=== PATIENT | female | born 1965 | race Caucasian/White ===

== ENCOUNTER 2016-05-31 11:53 | Emergency (ER) | payer MEDICAID ==
[~2016-05-31] VITALS: Ht 157.5 cm; Wt 125.8 kg
[2016-05-31 12:00] VITALS: BP 150/103
== END 2016-05-31 14:18 | disposition home or self-care (01) ==
LOC: ER 12:13
DX: J20.9 Acute bronchitis, unspecified (principal); H66.93 Otitis media, unspecified, bilateral

== ENCOUNTER 2016-06-03 13:54 | Inpatient (IN) | payer MEDICAID ==
[~2016-06-03] VITALS: Ht 157.5 cm; Wt 105.9 kg
[2016-06-03] MEDS ORDERED: ALBUTEROL SULF 2.5 MG/0.5ML(0.5%) NEB SOLN HHN STA (14:06)
[2016-06-03] MEDS ORDERED: SODIUM CHLORIDE 0.9% 1,000 ML IV ONE (14:15)
[2016-06-03] MEDS ORDERED: methylPREDNISolone SOD SUCC 125 MG/2 ML VL IV ONE (14:15)
[2016-06-03] MEDS ORDERED: IPRATROPIUM BROM 0.5 MG/2.5ML INH SOL NEB ONE (14:15)
[2016-06-03 14:55] LABS: Basophils # (auto) 0.1 uL; Basophils % (auto) 0.7 % (0.0-2.0); Eosinophils # (auto) 0 uL; Eosinophils % (auto) 0.1 % (0.0-7.0); Hematocrit 50.6 % (36.0-46.0); Hemoglobin 17.4 g/dL (12.2-16.2); Lymphocytes # (auto) 2.2 uL; Lymphocytes % (auto) 13.6 % (10.0-50.0); Mean Corpuscular Hemoglobin 32.7 pg (28.0-32.0); Mean Corpuscular Hgb Conc. 34.4 g/dL (32.0-36.0); Mean Platelet Volume 8.5 fL (7.4-10.4); Monocytes # (auto) 1.2 uL; Monocytes % (auto) 7.7 % (0.0-12.0); Neutrophils # (auto) 12.4 uL; Neutrophils % (auto) 77.9 % (37.0-80.0); Platelet Count (auto) 297 10^3/uL (140-450); Red Cell Distribution Width 13.5 % (11.6-16.0); White Blood Cell 15.9 10^3/uL (4.4-10.8)
[2016-06-03 15:15] LABS: Albumin 3.2 g/dL (3.4-5.0); Alkaline Phosphatase 104 U/L (45-117); Anion Gap 8 (5-15); Aspartate Aminotransferase 29 U/L (15-37); BUN/Creatinine Ratio 19.8; Bilirubin, Total 0.6 mg/dL (0.2-1.0); Blood Urea Nitrogen 16 mg/dL (7-18); Calcium 8.8 mg/dL (8.5-10.1); Carbon Dioxide 26 mmol/L (21-32); Chloride 106 mmol/L (98-107); GFR African American 96 mL/min; GFR Non-African American 80 mL/min; Glucose 182 mg/dL (74-106); Magnesium 2.2 mg/dL (1.6-2.6); Potassium 4.3 mmol/L (3.5-5.1); Sodium 140 mmol/L (136-145); Total Protein 7.4 g/dL (6.4-8.2)
[2016-06-03] MEDS ORDERED: DEXTROSE (50%) 50ML SYRG IV PRN (15:30)
[2016-06-03] MEDS ORDERED: ONDANSETRON HCL 4 MG/2 ML VIAL IV PRN (15:30)
[2016-06-03] MEDS ORDERED: cefTRIAXone 1GM/50ML D5W 50 ML IV ONE (15:45)
[2016-06-03] MEDS: AZITHROMYCIN 250 MG TAB PO SCH (16:00)
[2016-06-03] MEDS: InsuLIN REG 1unit/0.01ml Soln (100units/ml) SC SCH ×2 (17:00→22:36)
[2016-06-03] MEDS: ACCU-CHEK COMFORT CURVE STRIP VI SCH ×2 (17:00→22:00)
[2016-06-03 17:30] VITALS: BP 138/77
[2016-06-03] MEDS ORDERED: METF-314 PO (18:57)
[2016-06-03] MEDS ORDERED: HYDR-531 PO (18:57)
[2016-06-03] MEDS ORDERED: ALBUAER3 IN (18:57)
[2016-06-03] MEDS ORDERED: PRED1PAK10 PO (18:57)
[2016-06-03] MEDS ORDERED: CEPH750C6 PO (18:57)
[2016-06-03] MEDS ORDERED: AMOX875T3 PO (18:57)
[2016-06-03] MEDS ORDERED: SITA100T7 PO (18:57)
[2016-06-03] MEDS ORDERED: ASPI81TA13 PO (18:57)
[2016-06-03] MEDS: IPRATROPIUM BROM 0.5 MG/2.5ML INH SOL NEB SCH (19:15)
[2016-06-03] MEDS: ALBUTEROL SULF 2.5 MG/0.5ML(0.5%) NEB SOLN NEB SCH (19:15)
[2016-06-03 21:55] LABS: Urine Bilirubin Negative (Negative); Urine Blood Negative /uL (Negative); Urine Color Yellow (Yellow); Urine Glucose 4+ mg/dL (Normal); Urine Ketone Negative (Negative); Urine Nitrite Negative (Negative); Urine RBC 1 /hpf (0 - 4); Urine Squamous Epithelial Cell FEW /hpf (<5); Urine Urobilinogen Normal (Negative); Urine pH 6.5 (5.0-8.0)
[2016-06-03 22:00] VITALS: BP 153/82
[2016-06-03] MEDS: BUDESONIDE (INHALATION) 0.5 MG/2 ML NEB NEB SCH (22:00)
[2016-06-03] MEDS: methylPREDNISolone SOD SUCC 40 MG/ML VL IV SCH (22:26)
[2016-06-03] MEDS: HYDROcodone-ACET 5/325MG TAB PO PRN (22:26)
[2016-06-04 00:09] VITALS: BP 153/82
[2016-06-04 05:51] VITALS: BP 138/82
[2016-06-04] MEDS: IPRATROPIUM BROM 0.5 MG/2.5ML INH SOL NEB SCH ×5 (06:23→22:29)
[2016-06-04] MEDS: ALBUTEROL SULF 2.5 MG/0.5ML(0.5%) NEB SOLN NEB SCH ×5 (06:23→22:29)
[2016-06-04] MEDS: BUDESONIDE (INHALATION) 0.5 MG/2 ML NEB NEB SCH ×2 (06:24→18:09)
[2016-06-04] MEDS: methylPREDNISolone SOD SUCC 40 MG/ML VL IV SCH ×3 (06:33→22:14)
[2016-06-04] MEDS: ACCU-CHEK COMFORT CURVE STRIP VI SCH ×4 (06:33→22:14)
[2016-06-04] MEDS: InsuLIN REG 1unit/0.01ml Soln (100units/ml) SC SCH ×4 (06:39→22:14)
[2016-06-04 07:37] VITALS: BP 123/70
[2016-06-04] MEDS: AZITHROMYCIN 250 MG TAB PO SCH (09:05)
[2016-06-04] MEDS: cefTRIAXone 1GM/50ML D5W 50 ML IV SCH (09:06)
[2016-06-04] MEDS: HYDROcodone-ACET 5/325MG TAB PO PRN ×2 (09:55→22:46)
[2016-06-04 11:30] VITALS: BP 118/68
[2016-06-04] MEDS ORDERED: NICOTINE 21MG/24 HR TOPICAL PATCH TD ONE (14:15)
[2016-06-04 16:00] VITALS: BP 119/62
[2016-06-04] MEDS ORDERED: IPRATROPIUM BROM 0.5 MG/2.5ML INH SOL NEB ONE (16:53)
[2016-06-04 21:30] VITALS: BP 130/64
[2016-06-05 05:00] VITALS: BP 126/65
[2016-06-05] MEDS: methylPREDNISolone SOD SUCC 40 MG/ML VL IV SCH (05:34)
[2016-06-05] MEDS: HYDROcodone-ACET 5/325MG TAB PO PRN ×2 (05:34→14:43)
[2016-06-05] MEDS: BUDESONIDE (INHALATION) 0.5 MG/2 ML NEB NEB SCH (06:00)
[2016-06-05] MEDS: IPRATROPIUM BROM 0.5 MG/2.5ML INH SOL NEB SCH ×3 (06:00→13:07)
[2016-06-05] MEDS: ALBUTEROL SULF 2.5 MG/0.5ML(0.5%) NEB SOLN NEB SCH ×3 (06:00→13:07)
[2016-06-05] MEDS: ACCU-CHEK COMFORT CURVE STRIP VI SCH ×3 (06:29→13:32)
[2016-06-05] MEDS: InsuLIN REG 1unit/0.01ml Soln (100units/ml) SC SCH ×2 (06:29→11:30)
[2016-06-05 08:02] LABS: Basophils # (auto) 0 uL; Basophils % (auto) 0.1 % (0.0-2.0); Eosinophils # (auto) 0 uL; Hematocrit 50.3 % (36.0-46.0); Hemoglobin 16.9 g/dL (12.2-16.2); Lymphocytes # (auto) 1.8 uL; Lymphocytes % (auto) 10.4 % (10.0-50.0); Mean Corpuscular Hgb Conc. 33.5 g/dL (32.0-36.0); Mean Corpuscular Volume 95.3 fL (80.0-100.0); Mean Platelet Volume 9.5 fL (7.4-10.4); Monocytes % (auto) 5.5 % (0.0-12.0); Neutrophils # (auto) 14.6 uL; Platelet Count (auto) 281 10^3/uL (140-450); Red Cell Distribution Width 13.3 % (11.6-16.0); White Blood Cell 17.4 10^3/uL (4.4-10.8)
[2016-06-05] MEDS: AZITHROMYCIN 250 MG TAB PO SCH (08:39)
[2016-06-05] MEDS: cefTRIAXone 1GM/50ML D5W 50 ML IV SCH (08:39)
[2016-06-05 09:00] VITALS: BP 133/83
[2016-06-05] MEDS ORDERED: NICOTINE 21MG/24 HR TOPICAL PATCH TD SCH (10:00)
[2016-06-05] MEDS ORDERED: SODIUM CHLORIDE 0.9% 1,000 ML IV SCH (11:15)
[2016-06-05] MEDS ORDERED: ALBUAER3 IN (12:54)
[2016-06-05] MEDS ORDERED: LEVO500T3 PO (12:54)
[2016-06-05] MEDS ORDERED: NIC21P TD (12:58)
[2016-06-05 13:00] VITALS: BP 148/98
[2016-06-05] MEDS ORDERED: methylPREDNISolone SOD SUCC 40 MG/ML VL IV SCH (22:00)
== END 2016-06-05 14:55 | disposition home or self-care (01) | DRG 140 ==
LOC: EDBD 13:54 → ER 13:54 → OVERFLOW 13:55 → EAST 16:50
PROVIDERS: ADMIT Internal Medicine; ATTEND Internal Medicine
DX: J44.0 Chronic obstructive pulmonary disease with (acute) lower respiratory infection (principal); J96.01 Acute respiratory failure with hypoxia; J44.1 Chronic obstructive pulmonary disease with (acute) exacerbation; Z68.41 Body mass index [BMI] 40.0-44.9, adult; E11.9 Type 2 diabetes mellitus without complications; E66.9 Obesity, unspecified; J20.9 Acute bronchitis, unspecified; F17.210 Nicotine dependence, cigarettes, uncomplicated; G47.33 Obstructive sleep apnea (adult) (pediatric); T38.0X5A Adverse effect of glucocorticoids and synthetic analogues, initial encounter; B19.20 Unspecified viral hepatitis C without hepatic coma; Z90.49 Acquired absence of other specified parts of digestive tract
CPT/HCPCS: 36415; 71010; 80053; 81001; 82962; 83036; 83735; 84484; 85025; 87070; 87205; 93005; 94640; 94761; 96374; J0696; J1815

== ENCOUNTER 2016-08-04 02:38 | Emergency (ER) | payer MEDICAID ==
[~2016-08-04] VITALS: Ht 157.5 cm; Wt 107.0 kg
[~2016-08-04 02:38] MED LIST: ALBUAER3 IN; AMOX875T3 PO; ASPI81TA13 PO; CEPH750C6 PO; HYDR-531 PO; LEVO500T21 PO; METF-371 PO; NIC21P TD; PRED1PAK10 PO; SITA100T7 PO
[2016-08-04 03:31] LABS: Basophils # (auto) 0.1 uL; Basophils % (auto) 0.6 % (0.0-2.0); CONDITION Y; Eosinophils # (auto) 0.2 uL; Eosinophils % (auto) 1.9 % (0.0-7.0); Hemoglobin 16.4 g/dL (12.2-16.2); Lymphocytes # (auto) 3.6 uL; Lymphocytes % (auto) 35.1 % (10.0-50.0); Mean Corpuscular Hemoglobin 33.3 pg (28.0-32.0); Mean Corpuscular Hgb Conc. 34.8 g/dL (32.0-36.0); Mean Corpuscular Volume 95.5 fL (80.0-100.0); Mean Platelet Volume 8.4 fL (7.4-10.4); Monocytes # (auto) 0.9 uL; Monocytes % (auto) 8.3 % (0.0-12.0); Neutrophils # (auto) 5.6 uL; Neutrophils % (auto) 54.1 % (37.0-80.0); Platelet Count (auto) 225 10^3/uL (140-450); Red Cell Distribution Width 12.6 % (11.6-16.0); White Blood Cell 10.3 10^3/uL (4.4-10.8)
[2016-08-04 03:39] LABS: Urine Bilirubin Negative (Negative); Urine Blood Negative /uL (Negative); Urine Color Yellow (Yellow); Urine Glucose Normal (Normal); Urine Ketone Negative (Negative); Urine Mucus FEW (None Seen); Urine Nitrite Negative (Negative); Urine RBC 1 /hpf (0 - 4); Urine Squamous Epithelial Cell FEW /hpf (<5)
[2016-08-04 03:57] LABS: Albumin 3.2 g/dL (3.4-5.0); Alkaline Phosphatase 89 U/L (45-117); Anion Gap 7 (5-15); Aspartate Aminotransferase 35 U/L (15-37); BUN/Creatinine Ratio 16.7; Bilirubin, Total 0.5 mg/dL (0.2-1.0); Blood Urea Nitrogen 11 mg/dL (7-18); Calcium 8.9 mg/dL (8.5-10.1); Carbon Dioxide 27 mmol/L (21-32); Chloride 105 mmol/L (98-107); GFR African American 122 mL/min; GFR Non-African American 101 mL/min; Glucose 145 mg/dL (74-106); Magnesium 1.8 mg/dL (1.6-2.6); Potassium 3.7 mmol/L (3.5-5.1); Sodium 139 mmol/L (136-145); Total Protein 6.8 g/dL (6.4-8.2)
[2016-08-04 07:55] VITALS: BP 130/81
[2016-08-04] MEDS ORDERED: SODIUM CHLORIDE 0.9% 1,000 ML IV ONE (08:12)
[2016-08-04] MEDS ORDERED: ASPirin 81 mg TAB PO ONE (08:15)
== END 2016-08-04 09:53 | disposition home or self-care (01) ==
LOC: ER 02:38
DX: R07.2 Precordial pain (principal); I15.2 Hypertension secondary to endocrine disorders; B18.2 Chronic viral hepatitis C; E11.9 Type 2 diabetes mellitus without complications; F17.210 Nicotine dependence, cigarettes, uncomplicated; J45.909 Unspecified asthma, uncomplicated; Z79.82 Long term (current) use of aspirin; E66.9 Obesity, unspecified; Z68.35 Body mass index [BMI] 35.0-35.9, adult; Z88.8 Allergy status to other drugs, medicaments and biological substances
CPT/HCPCS: 36415; 71020; 80053; 80307; 81001; 83735; 84443; 84484; 85025; 93005; 94761

== ENCOUNTER 2018-03-01 17:30 | Emergency (ER) | payer MEDICAID ==
[~2018-03-01] VITALS: Ht 167.6 cm; Wt 95.3 kg
[~2018-03-01 17:30] MED LIST changes: +ASPI1TAB19 PO; -ASPI81TA13 PO
[2018-03-01 17:36] VITALS: BP 137/86
[2018-03-01] MEDS ORDERED: IBUPROFEN 800 MG TAB PO ONE (21:30)
== END 2018-03-01 20:50 | disposition home or self-care (01) ==
LOC: EDBD 17:30 → ER 17:33
DX: S73.101A Unspecified sprain of right hip, initial encounter (principal); J45.909 Unspecified asthma, uncomplicated; E11.9 Type 2 diabetes mellitus without complications; F17.210 Nicotine dependence, cigarettes, uncomplicated; Z90.49 Acquired absence of other specified parts of digestive tract; Z79.82 Long term (current) use of aspirin; Z79.899 Other long term (current) drug therapy; Z88.8 Allergy status to other drugs, medicaments and biological substances; Z79.84 Long term (current) use of oral hypoglycemic drugs; W01.198A Fall on same level from slipping, tripping and stumbling with subsequent striking against other object, initial encounter; Y93.01 Activity, walking, marching and hiking; Y99.8 Other external cause status; Y92.89 Other specified places as the place of occurrence of the external cause
CPT/HCPCS: 73502; 93005

== ENCOUNTER 2019-08-05 18:21 | Emergency (ER) | payer MEDICAID ==
[~2019-08-05] VITALS: Ht 157.5 cm; Wt 104.8 kg
[2019-08-05 18:52] VITALS: BP 152/73
[2019-08-05] MEDS ORDERED: methylPREDNISolone SOD SUCC 125 MG/2 ML VL IM ONE (19:00)
[2019-08-05] MEDS ORDERED: ALBUTEROL SULF 2.5 MG/0.5ML(0.5%) NEB SOLN NEB ONE (19:00)
[2019-08-05] MEDS ORDERED: IPRATROPIUM BROM 0.5 MG/2.5ML INH SOL NEB ONE (19:00)
== END 2019-08-05 21:25 | disposition home or self-care (01) ==
LOC: ER 18:21
DX: J44.1 Chronic obstructive pulmonary disease with (acute) exacerbation (principal); E11.9 Type 2 diabetes mellitus without complications; F17.210 Nicotine dependence, cigarettes, uncomplicated
CPT/HCPCS: 71046; 82962; 94640; 96372; 99283; J2930; J7644

== ENCOUNTER 2019-08-18 12:47 | Inpatient (IN) | payer MEDICAID ==
[~2019-08-18] VITALS: Ht 157.5 cm; Wt 103.7 kg
[2019-08-18 13:55] LABS: Basophils # (auto) 0.1 10 ^3/uL (0-0.2); Basophils % (auto) 0.8 % (0.0-2.0); Eosinophils # (auto) 0.2 10 ^3/uL (0-0.8); Eosinophils % (auto) 1.6 % (0.0-7.0); Hematocrit 49.9 % (36.0-46.0); Hemoglobin 17.3 g/dL (12.2-16.2); Lymphocytes # (auto) 3.4 10 ^3/uL (0.4-5.4); Lymphocytes % (auto) 29.1 % (10.0-50.0); Mean Corpuscular Hemoglobin 33.1 pg (28.0-32.0); Mean Corpuscular Hgb Conc. 34.6 g/dL (32.0-36.0); Mean Corpuscular Volume 95.6 fL (80.0-100.0); Monocytes % (auto) 8.9 % (0.0-12.0); Neutrophils # (auto) 6.9 10 ^3/uL (1.6-8.6); Neutrophils % (auto) 59.6 % (37.0-80.0); Nucleated Red Blood Cells % 0.1 %; Platelet Count (auto) 220 10^3/uL (140-450); Red Blood Cells 5.22 10^6/uL (4.0-5.20); Red Cell Distribution Width 12.9 % (11.8-14.3); White Blood Cell 11.5 10^3/uL (4.4-10.8)
[2019-08-18 14:16] LABS: Albumin 3.7 g/dL (3.4-5.0); Calcium 9.2 mg/dL (8.5-10.1); Potassium 4.2 mmol/L (3.5-5.1)
[2019-08-18 14:20] LABS: BUN/Creatinine Ratio 15.1; Bilirubin, Total 1.2 mg/dL (0.2-1.0); Total Protein 7.8 g/dL (6.4-8.2)
[2019-08-18] MEDS ORDERED: SODIUM CHLORIDE 0.9% 1,000 ML IV ONE (16:45)
[2019-08-18] MEDS ORDERED: PANTOPRAZOLE 40 MG/10 ML VIAL INJ IV ONE (16:45)
[2019-08-18] MEDS ORDERED: ONDANSETRON HCL 4 MG/2 ML VIAL IV ONE (17:15)
[2019-08-18] MEDS ORDERED: MORPHINE SULF INJ 2 MG/ML SYRINGE 1ML IV ONE (17:15)
[2019-08-18 17:20] LABS: Urine Bacteria NONE SEEN /hpf (None Seen); Urine Blood 2+ /uL (Negative); Urine Mucus FEW (None Seen); Urine Specific Gravity 1.027 (1.001-1.035); Urine WBC 5 /hpf (0 - 5)
[2019-08-18 17:38] LABS: Amphetamine Screen, Urine NEGATIVE (NEGATIVE); Barbiturate Scree,Urine NEGATIVE (NEGATIVE); Benzodiazephine Screen, Urine NEGATIVE (NEGATIVE); Cannabinoid Screen, Urine NEGATIVE (NEGATIVE); Cocaine Screen, Urine NEGATIVE (NEGATIVE); Opiate Scree,Urine NEGATIVE (NEGATIVE); Phencyclidine Screen, Urine NEGATIVE (NEGATIVE)
[2019-08-18] MEDS ORDERED: LACTATED RINGER'S 1,000 ML IV ONE (19:45)
[2019-08-18] MEDS ORDERED: DEXTROSE (50%) 50ML SYRG IV PRN (19:45)
[2019-08-18] MEDS ORDERED: DOCUSATE SOD 100 MG CAP PO PRN (19:45)
[2019-08-18] MEDS ORDERED: NITROGLYCERIN 0.4 MG SL TAB SL PRN (19:45)
[2019-08-18] MEDS ORDERED: MORPHINE SULF INJ 2 MG/ML SYRINGE 1ML IV PRN (19:45)
[2019-08-18] MEDS: PANTOPRAZOLE 40 MG/10 ML VIAL INJ IV SCH (22:00)
[2019-08-19] VITALS (7 sets, daily range): BP systolic 102–138; BP diastolic 66–77
[2019-08-19] MEDS: IPRATROPIUM BROM 0.5 MG/2.5ML INH SOL NEB SCH ×5 (00:43→19:36)
[2019-08-19] MEDS: ALBUTEROL SULF 2.5 MG/0.5ML(0.5%) NEB SOLN NEB SCH ×5 (00:43→19:36)
[2019-08-19] MEDS: MORPHINE SULF INJ 2 MG/ML SYRINGE 1ML IV PRN ×5 (01:12→22:27)
[2019-08-19] MEDS: ONDANSETRON HCL 4 MG/2 ML VIAL IV PRN ×2 (01:29→05:36)
[2019-08-19] MEDS ORDERED: CYCL7.5T15 PO (03:59)
[2019-08-19] MEDS ORDERED: TAM04C PO (03:59)
[2019-08-19] MEDS: ACCU-CHEK COMFORT CURVE STRIP VI SCH ×5 (05:35→23:59)
[2019-08-19] MEDS: InsuLIN REG 1unit/0.01ml Soln (100units/ml) SC SCH ×5 (05:40→23:59)
[2019-08-19 06:31] LABS: Basophils # (auto) 0 10 ^3/uL (0-0.2); Basophils % (auto) 0.3 % (0.0-2.0); Eosinophils # (auto) 0.2 10 ^3/uL (0-0.8); Eosinophils % (auto) 1.4 % (0.0-7.0); Hematocrit 50.5 % (36.0-46.0); Hemoglobin 16.7 g/dL (12.2-16.2); Lymphocytes # (auto) 3.8 10 ^3/uL (0.4-5.4); Lymphocytes % (auto) 29.5 % (10.0-50.0); Mean Corpuscular Hemoglobin 32.5 pg (28.0-32.0); Mean Corpuscular Volume 98.3 fL (80.0-100.0); Monocytes # (auto) 0.9 10 ^3/uL (0-1.3); Neutrophils % (auto) 61.8 % (37.0-80.0); Platelet Count (auto) 209 10^3/uL (140-450); Red Blood Cells 5.14 10^6/uL (4.0-5.20)
[2019-08-19 06:36] LABS: INR 0.99 (0.9-1.15); Partial Thromboplastin Time 25.8 sec (23.64-32.05)
[2019-08-19 06:45] LABS: Potassium 3.7 mmol/L (3.5-5.1)
[2019-08-19 06:51] LABS: Albumin 3.4 g/dL (3.4-5.0); BUN/Creatinine Ratio 15.9; Bilirubin, Total 1.1 mg/dL (0.2-1.0); Calcium 8.5 mg/dL (8.5-10.1); Magnesium 2.5 mg/dL (1.6-2.6); Total Protein 7.3 g/dL (6.4-8.2)
[2019-08-19] MEDS: PANTOPRAZOLE 40 MG/10 ML VIAL INJ IV SCH (10:10)
[2019-08-19] MEDS: SUCRALFATE 1 GM/10 ML ORAL SUSP PO SCH ×3 (12:44→21:49)
[2019-08-19] MEDS: PANTOPRAZOLE 40 MG TAB PO SCH (21:50)
[2019-08-20] MEDS: ALBUTEROL SULF 2.5 MG/0.5ML(0.5%) NEB SOLN NEB SCH ×6 (01:29→18:56)
[2019-08-20] MEDS: IPRATROPIUM BROM 0.5 MG/2.5ML INH SOL NEB SCH ×6 (01:29→18:56)
[2019-08-20] MEDS: HYDROcodone-ACET 5/325MG TAB PO PRN ×3 (04:43→20:30)
[2019-08-20 05:00] VITALS: BP 119/61
[2019-08-20] MEDS: ACCU-CHEK COMFORT CURVE STRIP VI SCH ×4 (06:00→23:59)
[2019-08-20] MEDS: InsuLIN REG 1unit/0.01ml Soln (100units/ml) SC SCH ×4 (06:00→23:59)
[2019-08-20] MEDS: SUCRALFATE 1 GM/10 ML ORAL SUSP PO SCH ×4 (06:55→22:12)
[2019-08-20] MEDS: MORPHINE SULF INJ 2 MG/ML SYRINGE 1ML IV PRN ×2 (07:03→23:59)
[2019-08-20 09:00] VITALS: BP 122/74
[2019-08-20] MEDS ORDERED: ePHEDrine SULFATE 50 MG/ML AMP IV PRN (10:00)
[2019-08-20] MEDS ORDERED: LABETALOL HCL 5 MG/ML 4ML SYRINGE IV PRN (10:00)
[2019-08-20] MEDS ORDERED: MIDAZOLAM HCL 1MG/1ML-2 ML VIAL ONE (10:00)
[2019-08-20] MEDS ORDERED: HYDROmorphone HCL 2 MG/ML VL IV PRN (10:00)
[2019-08-20] MEDS ORDERED: fentaNYL CITRATE 100 MCG/2 ML VL ONE (10:00)
[2019-08-20] MEDS ORDERED: MORPHINE SULFATE 4 MG/ML SYR/VIAL IV PRN (10:00)
[2019-08-20] MEDS ORDERED: ONDANSETRON HCL 4 MG/2 ML VIAL IV PRN (10:00)
[2019-08-20] MEDS ORDERED: PROPOFOL 10 MG/ML 20 ML IV ONE (10:05)
[2019-08-20] MEDS: PANTOPRAZOLE 40 MG TAB PO SCH ×2 (11:10→22:12)
[2019-08-20 13:00] VITALS: BP 112/69
[2019-08-20 17:00] VITALS: BP 102/75
[2019-08-20 22:00] VITALS: BP 142/79
[2019-08-21] MEDS: ALBUTEROL SULF 2.5 MG/0.5ML(0.5%) NEB SOLN NEB SCH ×4 (00:02→12:20)
[2019-08-21] MEDS: IPRATROPIUM BROM 0.5 MG/2.5ML INH SOL NEB SCH ×4 (00:02→12:20)
[2019-08-21 05:00] VITALS: BP 124/69
[2019-08-21] MEDS: InsuLIN REG 1unit/0.01ml Soln (100units/ml) SC SCH ×2 (06:00→12:00)
[2019-08-21] MEDS: ACCU-CHEK COMFORT CURVE STRIP VI SCH ×2 (06:00→12:00)
[2019-08-21] MEDS: MORPHINE SULF INJ 2 MG/ML SYRINGE 1ML IV PRN ×2 (06:39→11:04)
[2019-08-21] MEDS: SUCRALFATE 1 GM/10 ML ORAL SUSP PO SCH ×2 (07:12→11:03)
[2019-08-21 09:20] VITALS: BP 124/68
[2019-08-21] MEDS: PANTOPRAZOLE 40 MG TAB PO SCH (09:21)
[2019-08-21 09:52] VITALS: BP 124/68
== END 2019-08-21 13:00 | disposition home or self-care (01) | DRG 253 ==
LOC: ER 12:47 → OVERFLOW 12:48 → WEST WING 23:55
PROVIDERS: ADMIT Internal Medicine; ATTEND Internal Medicine
PROC: 0DB68ZX Excision of Stomach, Via Natural or Artificial Opening Endoscopic, Diagnostic (ICD-10-PCS; principal; 2019-08-20 09:59)
DX: K62.5 Hemorrhage of anus and rectum (principal); E66.01 Morbid (severe) obesity due to excess calories; K40.90 Unilateral inguinal hernia, without obstruction or gangrene, not specified as recurrent; K57.30 Diverticulosis of large intestine without perforation or abscess without bleeding; K42.9 Umbilical hernia without obstruction or gangrene; D64.9 Anemia, unspecified; J96.10 Chronic respiratory failure, unspecified whether with hypoxia or hypercapnia; M54.9 Dorsalgia, unspecified; G47.30 Sleep apnea, unspecified; E11.9 Type 2 diabetes mellitus without complications; F17.210 Nicotine dependence, cigarettes, uncomplicated; J44.9 Chronic obstructive pulmonary disease, unspecified; G89.4 Chronic pain syndrome; Z71.41 Alcohol abuse counseling and surveillance of alcoholic; Z90.49 Acquired absence of other specified parts of digestive tract; Z71.6 Tobacco abuse counseling; Z99.81 Dependence on supplemental oxygen; Z11.59 Encounter for screening for other viral diseases
CPT/HCPCS: 36415; 71045; 74176; 80053; 80061; 80307; 81001; 82150; 82962; 83036; 83690; 83735; 84484; 85025; 85610; 85730; 93005; 94640; C9113; G0378; J1815; J2250; J2405; J2704

== ENCOUNTER 2019-10-01 08:11 | Emergency (ER) | payer MEDICAID ==
[~2019-10-01] VITALS: Ht 157.5 cm; Wt 100.2 kg
[~2019-10-01 08:11] MED LIST changes: -PRED1PAK10 PO
[2019-10-01] MEDS ORDERED: SODIUM CHLORIDE 0.9% 1,000 ML IV ONE (09:07)
[2019-10-01 09:39] LABS: Basophils # (auto) 0 10 ^3/uL (0-0.2); Basophils % (auto) 0.5 % (0.0-2.0); Eosinophils # (auto) 0.1 10 ^3/uL (0-0.8); Eosinophils % (auto) 1.6 % (0.0-7.0); Hemoglobin 16.5 g/dL (12.2-16.2); Lymphocytes # (auto) 2.7 10 ^3/uL (0.4-5.4); Lymphocytes % (auto) 30.5 % (10.0-50.0); Mean Corpuscular Hemoglobin 32.9 pg (28.0-32.0); Mean Corpuscular Hgb Conc. 34.3 g/dL (32.0-36.0); Mean Corpuscular Volume 95.8 fL (80.0-100.0); Monocytes # (auto) 0.6 10 ^3/uL (0-1.3); Monocytes % (auto) 7.4 % (0.0-12.0); Neutrophils # (auto) 5.2 10 ^3/uL (1.6-8.6); Platelet Count (auto) 221 10^3/uL (140-450); Red Blood Cells 5.01 10^6/uL (4.0-5.20); Red Cell Distribution Width 12.8 % (11.8-14.3); White Blood Cell 8.7 10^3/uL (4.4-10.8)
[2019-10-01 10:06] LABS: Albumin 3.5 g/dL (3.4-5.0); Anion Gap 4 (5-15); Blood Urea Nitrogen 11 mg/dL (7-18); Calcium 8.8 mg/dL (8.5-10.1); Carbon Dioxide 27 mmol/L (21-32); Chloride 107 mmol/L (98-107); Potassium 3.7 mmol/L (3.5-5.1); Sodium 138 mmol/L (136-145)
[2019-10-01 10:12] LABS: Alanine Aminotransferase 27 U/L (13-56); Alkaline Phosphatase 83 U/L (45-117); Aspartate Aminotransferase 13 U/L (15-37); BUN/Creatinine Ratio 14.7; GFR African American 104 mL/min; GFR Non-African American 86 mL/min; Glucose 108 mg/dL (74-106)
[2019-10-01 10:16] VITALS: BP 114/71
[2019-10-01 10:59] LABS: INR 0.98 (0.9-1.15); Partial Thromboplastin Time 27.4 sec (23.0-31.2)
[2019-10-01] MEDS ORDERED: PANTOPRAZOLE 40 MG TAB PO ONE (11:30)
[2019-10-01 11:34] LABS: Urine Bacteria NONE SEEN /hpf (None Seen); Urine Blood 2+ /uL (Negative); Urine Mucus FEW (None Seen); Urine Specific Gravity 1.015 (1.001-1.035); Urine WBC 2 /hpf (0 - 5)
== END 2019-10-01 12:28 | disposition home or self-care (01) ==
LOC: ER 08:11
DX: N20.0 Calculus of kidney (principal); E86.0 Dehydration; K64.9 Unspecified hemorrhoids; J44.9 Chronic obstructive pulmonary disease, unspecified; E11.9 Type 2 diabetes mellitus without complications; F17.210 Nicotine dependence, cigarettes, uncomplicated; Z90.49 Acquired absence of other specified parts of digestive tract
CPT/HCPCS: 36415; 71045; 74176; 80053; 81001; 84484; 85025; 85610; 85730; 96360

== ENCOUNTER 2020-06-03 15:13 | Emergency (ER) | payer MEDICAID ==
[~2020-06-03] VITALS: Ht 157.5 cm; Wt 98.9 kg
[~2020-06-03 15:13] MED LIST changes: -LEVO500T21 PO; +LEVO500T31 PO
[2020-06-03 15:14] VITALS: BP 164/93
[2020-06-03] MEDS ORDERED: ONDANSETRON ODT 4 MG TAB PO ONE (16:45)
[2020-06-03] MEDS ORDERED: KETOROLAC TROMETH 60MG/2ML VIAL IM ONE (16:45)
== END 2020-06-03 17:40 | disposition home or self-care (01) ==
LOC: ER 15:13
DX: G43.909 Migraine, unspecified, not intractable, without status migrainosus (principal); J44.9 Chronic obstructive pulmonary disease, unspecified; E11.9 Type 2 diabetes mellitus without complications; F17.210 Nicotine dependence, cigarettes, uncomplicated; R03.0 Elevated blood-pressure reading, without diagnosis of hypertension; Z90.49 Acquired absence of other specified parts of digestive tract
CPT/HCPCS: 81002; 93005; 96372; 99283; J1885; Q0162

== ENCOUNTER 2020-06-04 22:28 | Emergency (ER) | payer MEDICAID ==
[~2020-06-04] VITALS: Ht 157.5 cm; Wt 99.8 kg
[2020-06-04 23:39] LABS: Basophils # (auto) 0 10 ^3/uL (0-0.2); Basophils % (auto) 0.3 % (0.0-2.0); Eosinophils # (auto) 0.1 10 ^3/uL (0-0.8); Eosinophils % (auto) 0.5 % (0.0-7.0); Hematocrit 50.1 % (36.0-46.0); Hemoglobin 17.6 g/dL (12.2-16.2); Lymphocytes # (auto) 1.9 10 ^3/uL (0.4-5.4); Lymphocytes % (auto) 15.2 % (10.0-50.0); Mean Corpuscular Hemoglobin 33.3 pg (28.0-32.0); Mean Corpuscular Hgb Conc. 35.2 g/dL (32.0-36.0); Mean Corpuscular Volume 94.6 fL (80.0-100.0); Monocytes # (auto) 0.8 10 ^3/uL (0-1.3); Monocytes % (auto) 6.1 % (0.0-12.0); Neutrophils # (auto) 9.7 10 ^3/uL (1.6-8.6); Neutrophils % (auto) 77.9 % (37.0-80.0); Nucleated Red Blood Cells % 0.1 %; Platelet Count (auto) 230 10^3/uL (140-450); Red Cell Distribution Width 12.2 % (11.8-14.3); White Blood Cell 12.4 10^3/uL (4.4-10.8)
[2020-06-04 23:57] LABS: Anion Gap 9 (5-15); Blood Urea Nitrogen 18 mg/dL (7-18); Calcium 9.3 mg/dL (8.5-10.1); Carbon Dioxide 23 mmol/L (21-32); Chloride 105 mmol/L (98-107); Potassium 3.9 mmol/L (3.5-5.1); Sodium 137 mmol/L (136-145)
[2020-06-05] LABS: Albumin 3.6 g/dL (3.4-5.0); BUN/Creatinine Ratio 22.5; GFR African American 96 mL/min; GFR Non-African American 79 mL/min; Glucose 149 mg/dL (74-106)
[2020-06-05 00:05] LABS: Alanine Aminotransferase 21 U/L (13-56); Alkaline Phosphatase 88 U/L (45-117); Aspartate Aminotransferase 15 U/L (15-37); Bilirubin, Total 1.1 mg/dL (0.2-1.0); Total Protein 7.4 g/dL (6.4-8.2)
[2020-06-05 00:30] VITALS: BP 138/90
[2020-06-05 01:16] LABS: Urine Amorphous Crystal FEW /hpf (None Seen); Urine Bacteria FEW /hpf (None Seen); Urine Blood 2+ /uL (Negative); Urine Mucus FEW (None Seen); Urine Specific Gravity 1.019 (1.001-1.035); Urine WBC 5 /hpf (0 - 5)
[2020-06-05] MEDS ORDERED: ALBUTEROL SULF 2.5 MG/0.5ML(0.5%) NEB SOLN NEB ONE (01:45)
[2020-06-05] MEDS ORDERED: IPRATROPIUM BROM 0.5 MG/2.5ML INH SOL NEB ONE (01:45)
[2020-06-05] MEDS ORDERED: ALBUTEROL SULF 2.5 MG/0.5ML(0.5%) NEB SOLN ONE (01:52)
[2020-06-05] MEDS ORDERED: IPRATROPIUM BROM 0.5 MG/2.5ML INH SOL ONE (01:52)
== END 2020-06-05 02:40 | disposition home or self-care (01) ==
LOC: ER 22:29
DX: J44.1 Chronic obstructive pulmonary disease with (acute) exacerbation (principal); R07.9 Chest pain, unspecified; J01.00 Acute maxillary sinusitis, unspecified; J20.9 Acute bronchitis, unspecified; F17.210 Nicotine dependence, cigarettes, uncomplicated; I25.2 Old myocardial infarction; Z90.49 Acquired absence of other specified parts of digestive tract
CPT/HCPCS: 36415; 71045; 80053; 81001; 82962; 83880; 84484; 85025; 93005; 94640; 99285; J7644

== ENCOUNTER 2020-08-16 10:13 | Emergency (ER) | payer MEDICAID ==
[~2020-08-16] VITALS: Ht 162.6 cm; Wt 81.6 kg
[2020-08-16] MEDS ORDERED: ALBUTEROL SULF 2.5 MG/0.5ML(0.5%) NEB SOLN NEB ONE (11:00)
[2020-08-16] MEDS ORDERED: methylPREDNISolone SOD SUCC 125 MG/2 ML VL IV ONE (11:00)
[2020-08-16] MEDS ORDERED: NICOTINE 14 MG/24HR TOPICAL PATCH TD ONE (11:00)
[2020-08-16] MEDS ORDERED: IPRATROPIUM BROM 0.5 MG/2.5ML INH SOL NEB ONE (11:00)
[2020-08-16] MEDS ORDERED: SODIUM CHLORIDE 0.9% 1,000 ML IVB ONE (11:00)
[2020-08-16] MEDS ORDERED: SODIUM CHLORIDE 0.9% 1,000 ML IV ONE (11:00)
[2020-08-16 11:22] LABS: Basophils # (auto) 0.1 10 ^3/uL (0-0.2); Eosinophils # (auto) 0.2 10 ^3/uL (0-0.8); Eosinophils % (auto) 2.2 % (0.0-7.0); Hematocrit 46.6 % (36.0-46.0); Hemoglobin 16.6 g/dL (12.2-16.2); Lymphocytes # (auto) 2.6 10 ^3/uL (0.4-5.4); Lymphocytes % (auto) 33.2 % (10.0-50.0); Mean Corpuscular Hemoglobin 33.6 pg (28.0-32.0); Mean Corpuscular Hgb Conc. 35.6 g/dL (32.0-36.0); Mean Corpuscular Volume 94.3 fL (80.0-100.0); Monocytes # (auto) 0.7 10 ^3/uL (0-1.3); Monocytes % (auto) 8.6 % (0.0-12.0); Neutrophils # (auto) 4.2 10 ^3/uL (1.6-8.6); Nucleated Red Blood Cells % 0.2 %; Platelet Count (auto) 219 10^3/uL (140-450); Red Blood Cells 4.95 10^6/uL (4.0-5.20); Red Cell Distribution Width 12.7 % (11.8-14.3); White Blood Cell 7.7 10^3/uL (4.4-10.8)
[2020-08-16 11:40] LABS: Albumin 3.7 g/dL (3.4-5.0); Anion Gap 6 (5-15); Blood Urea Nitrogen 9 mg/dL (7-18); Calcium 8.5 mg/dL (8.5-10.1); Carbon Dioxide 28 mmol/L (21-32); Chloride 103 mmol/L (98-107); Glucose 129 mg/dL (74-106); Magnesium 2.1 mg/dL (1.6-2.6); Potassium 3.7 mmol/L (3.5-5.1); Sodium 137 mmol/L (136-145)
[2020-08-16 11:46] LABS: Alanine Aminotransferase 25 U/L (13-56); Alkaline Phosphatase 84 U/L (45-117); Aspartate Aminotransferase 13 U/L (15-37); BUN/Creatinine Ratio 12.2; Bilirubin, Total 0.9 mg/dL (0.2-1.0); GFR African American 105 mL/min; GFR Non-African American 87 mL/min; Total Protein 7.4 g/dL (6.4-8.2)
[2020-08-16 12:16] LABS: Urine Bacteria FEW /hpf (None Seen); Urine Blood 3+ /uL (Negative); Urine Mucus FEW (None Seen); Urine Specific Gravity 1.011 (1.001-1.035); Urine WBC 5 /hpf (0 - 5)
[2020-08-16 13:36] VITALS: BP 141/79
== END 2020-08-16 13:38 | disposition home or self-care (01) ==
LOC: ER 10:13 → EDBD 10:13 → ER 13:36
DX: J44.1 Chronic obstructive pulmonary disease with (acute) exacerbation (principal); E11.9 Type 2 diabetes mellitus without complications; F17.210 Nicotine dependence, cigarettes, uncomplicated; Z90.49 Acquired absence of other specified parts of digestive tract
CPT/HCPCS: 36415; 71045; 80053; 81001; 83735; 84443; 84484; 85025; 85049; 93005; 94640; 96361; 96374; 99285; J2930; J7030; J7644

== ENCOUNTER 2020-12-25 16:19 | Emergency (ER) | payer MEDICAID ==
[~2020-12-25] VITALS: Ht 157.5 cm; Wt 95.7 kg
[2020-12-25] MEDS ORDERED: KETOROLAC TROMETH 30 MG/ML 1ML VIAL IV ONE (16:45)
[2020-12-25] MEDS ORDERED: SODIUM CHLORIDE 0.9% 1,000 ML IVB ONE (16:45)
[2020-12-25] MEDS ORDERED: TAMSULOSIN HYDROCHLORIDE 0.4 MG CAP PO ONE (16:45)
[2020-12-25] MEDS ORDERED: SODIUM CHLORIDE 0.9% 1,000 ML IV ONE (16:45)
[2020-12-25] MEDS ORDERED: ONDANSETRON HCL 4 MG/2 ML VIAL IV ONE (16:45)
[2020-12-25 17:12] LABS: Urine Bacteria NONE SEEN /hpf (None Seen); Urine Blood 1+ /uL (Negative); Urine Mucus FEW (None Seen); Urine Specific Gravity 1.028 (1.001-1.035); Urine WBC 2 /hpf (0 - 5)
[2020-12-25 18:21] LABS: Basophils # (auto) 0 10 ^3/uL (0-0.2); Basophils % (auto) 0.4 % (0.0-2.0); Eosinophils # (auto) 0.2 10 ^3/uL (0-0.8); Eosinophils % (auto) 1.9 % (0.0-7.0); Hematocrit 49.3 % (36.0-46.0); Hemoglobin 16.8 g/dL (12.2-16.2); Lymphocytes # (auto) 3.6 10 ^3/uL (0.4-5.4); Lymphocytes % (auto) 30.8 % (10.0-50.0); Mean Corpuscular Hemoglobin 32.8 pg (28.0-32.0); Mean Corpuscular Hgb Conc. 34.1 g/dL (32.0-36.0); Mean Corpuscular Volume 96.1 fL (80.0-100.0); Monocytes # (auto) 1.1 10 ^3/uL (0-1.3); Monocytes % (auto) 9.3 % (0.0-12.0); Neutrophils # (auto) 6.7 10 ^3/uL (1.6-8.6); Neutrophils % (auto) 57.6 % (37.0-80.0); Nucleated Red Blood Cells % 0.1 %; Red Blood Cells 5.13 10^6/uL (4.0-5.20); Red Cell Distribution Width 12.8 % (11.8-14.3); White Blood Cell 11.7 10^3/uL (4.4-10.8)
[2020-12-25 18:49] LABS: Albumin 3.6 g/dL (3.4-5.0); Calcium 9.1 mg/dL (8.5-10.1); Potassium 4.2 mmol/L (3.5-5.1)
[2020-12-25 18:58] LABS: BUN/Creatinine Ratio 17.1; Total Protein 7.5 g/dL (6.4-8.2)
[2020-12-25 19:35] VITALS: BP 132/80
[2020-12-26] MEDS ORDERED: FLUT0.05 NAS (19:11)
[2020-12-26] MEDS ORDERED: LISI20TA28 PO (19:11)
[2020-12-26] MEDS ORDERED: BUDE1AER5 IN (19:11)
[2020-12-26] MEDS ORDERED: BACL10TA PO (19:11)
[2020-12-26] MEDS ORDERED: IBUP600T27 PO (19:11)
[2020-12-26] MEDS ORDERED: MONT-8 PO (19:11)
[2020-12-26] MEDS ORDERED: FAMO20TA10 PO (19:11)
[2020-12-26] MEDS ORDERED: ATOR10TA52 PO (19:11)
[2020-12-26] MEDS ORDERED: LORA-622 PO (19:11)
[2020-12-26] MEDS ORDERED: GABA-339 PO (19:11)
[2020-12-26] MEDS ORDERED: DICL1.3P TOP (19:11)
[2020-12-26] MEDS ORDERED: SEMA4INJ SC (19:13)
== END 2020-12-25 19:46 | disposition home or self-care (01) ==
LOC: ER 16:19
DX: N20.0 Calculus of kidney (principal); J44.9 Chronic obstructive pulmonary disease, unspecified; E11.9 Type 2 diabetes mellitus without complications; F17.210 Nicotine dependence, cigarettes, uncomplicated; Z90.49 Acquired absence of other specified parts of digestive tract; Z79.82 Long term (current) use of aspirin; Z79.2 Long term (current) use of antibiotics; Z79.899 Other long term (current) drug therapy; Z88.8 Allergy status to other drugs, medicaments and biological substances
CPT/HCPCS: 36415; 74176; 80053; 81001; 85025; 96361; 96374; 96375; 99284; J1885; J2405; J7030

== ENCOUNTER 2020-12-26 09:52 | Inpatient (IN) | payer MEDICAID ==
[~2020-12-26] VITALS: Ht 157.5 cm; Wt 99.6 kg
[2020-12-26] MEDS ORDERED: KETOROLAC TROMETH 30 MG/ML 1ML VIAL IV ONE (10:45)
[2020-12-26] MEDS ORDERED: TAMSULOSIN HYDROCHLORIDE 0.4 MG CAP PO ONE (10:45)
[2020-12-26] MEDS ORDERED: SODIUM CHLORIDE 0.9% 1,000 ML IVB ONE (10:45)
[2020-12-26] MEDS ORDERED: SODIUM CHLORIDE 0.9% 1,000 ML IV ONE ×2 (10:45→15:45)
[2020-12-26] MEDS ORDERED: ONDANSETRON HCL 4 MG/2 ML VIAL IV ONE (10:45)
[2020-12-26 11:51] LABS: Basophils # (auto) 0 10 ^3/uL (0-0.2); Basophils % (auto) 0.5 % (0.0-2.0); Eosinophils # (auto) 0.2 10 ^3/uL (0-0.8); Eosinophils % (auto) 1.7 % (0.0-7.0); Hematocrit 48.8 % (36.0-46.0); Hemoglobin 16.3 g/dL (12.2-16.2); Lymphocytes # (auto) 2.9 10 ^3/uL (0.4-5.4); Lymphocytes % (auto) 28.1 % (10.0-50.0); Mean Corpuscular Hemoglobin 32.2 pg (28.0-32.0); Mean Corpuscular Hgb Conc. 33.5 g/dL (32.0-36.0); Mean Corpuscular Volume 96.3 fL (80.0-100.0); Monocytes # (auto) 0.9 10 ^3/uL (0-1.3); Monocytes % (auto) 8.9 % (0.0-12.0); Neutrophils # (auto) 6.3 10 ^3/uL (1.6-8.6); Neutrophils % (auto) 60.8 % (37.0-80.0); Red Blood Cells 5.06 10^6/uL (4.0-5.20); Red Cell Distribution Width 12.7 % (11.8-14.3); White Blood Cell 10.4 10^3/uL (4.4-10.8)
[2020-12-26 12:08] LABS: Potassium 4.6 mmol/L (3.5-5.1)
[2020-12-26 12:15] LABS: Albumin 3.7 g/dL (3.4-5.0); BUN/Creatinine Ratio 18.4; Bilirubin, Total 0.9 mg/dL (0.2-1.0); Calcium 9.6 mg/dL (8.5-10.1); Total Protein 7.1 g/dL (6.4-8.2)
[2020-12-26 12:26] LABS: INR 0.98 (0.9-1.15); Partial Thromboplastin Time 26.6 sec (23.6-33.0)
[2020-12-26] MEDS ORDERED: OXYCODONE W/ ACETAMINOPHEN 5/325MG TABLET PO ONE (12:30)
[2020-12-26 12:54] LABS: Urine Bacteria NONE SEEN /hpf (None Seen); Urine Blood 2+ /uL (Negative); Urine Mucus FEW (None Seen); Urine Specific Gravity 1.023 (1.001-1.035); Urine WBC 7 /hpf (0 - 5)
[2020-12-26] MEDS ORDERED: DEXTROSE (50%) 50ML SYRG IV PRN (15:45)
[2020-12-26] MEDS ORDERED: NITROGLYCERIN 0.4 MG SL TAB SL PRN (15:45)
[2020-12-26] MEDS ORDERED: MANNITOL 20% SOLN 100 gm/500ml 300 ML IV ONE (15:45)
[2020-12-26] MEDS ORDERED: KETOROLAC TROMETH 30 MG/ML 1ML VIAL IV PRN (15:45)
[2020-12-26] MEDS ORDERED: MORPHINE SULFATE INJECTION 2 MG/ML SYRG IV PRN (15:45)
[2020-12-26] MEDS ORDERED: ONDANSETRON HCL 4 MG/2 ML VIAL IV PRN (15:45)
[2020-12-26] MEDS ORDERED: SODIUM CHLORIDE 0.9% 1,000 ML IV SCH (15:45)
[2020-12-26] MEDS ORDERED: MANNITOL 20 % (20GM/100ML) 500 ML IV ONE (17:06)
[2020-12-26] MEDS: InsuLIN REG 1unit/0.01ml Soln (100units/ml) SC SCH ×2 (18:30→21:38)
[2020-12-26] MEDS: ACCU-CHEK COMFORT CURVE STRIP VI SCH ×2 (18:30→21:37)
[2020-12-26] MEDS: FUROSEMIDE 20 MG/2 ML VIAL IV SCH (18:49)
[2020-12-26] MEDS ORDERED: BUDE1AER5 IN (19:11)
[2020-12-26] MEDS ORDERED: GABA-339 PO (19:11)
[2020-12-26] MEDS ORDERED: FLUT0.05 NAS (19:11)
[2020-12-26] MEDS ORDERED: BACL10TA PO (19:11)
[2020-12-26] MEDS ORDERED: MONT-8 PO (19:11)
[2020-12-26] MEDS ORDERED: DICL1.3P TOP (19:11)
[2020-12-26] MEDS ORDERED: ATOR10TA52 PO (19:11)
[2020-12-26] MEDS ORDERED: LORA-622 PO (19:11)
[2020-12-26] MEDS ORDERED: LISI20TA28 PO (19:11)
[2020-12-26] MEDS ORDERED: IBUP600T27 PO (19:11)
[2020-12-26] MEDS ORDERED: FAMO20TA10 PO (19:11)
[2020-12-26] MEDS ORDERED: SEMA4INJ SC (19:13)
[2020-12-26] MEDS: SODIUM CHLORIDE 0.9% 1,000 ML IV SCH (21:00)
[2020-12-26] MEDS: POTASSIUM EFFERVESENT TAB 25 MEQ PO SCH (21:37)
[2020-12-26] MEDS: CIPROFLOXACIN HCL 500 MG TAB PO SCH (21:37)
[2020-12-26] MEDS: HYDROcodone-ACET 10/325MG TAB PO PRN (21:39)
[2020-12-26 22:09] VITALS: BP 146/87
[2020-12-27] MEDS: HYDROcodone-ACET 10/325MG TAB PO PRN ×2 (03:44→15:19)
[2020-12-27 05:12] VITALS: BP 152/90
[2020-12-27] MEDS: SODIUM CHLORIDE 0.9% 1,000 ML IV SCH ×2 (05:33→10:20)
[2020-12-27] MEDS: FUROSEMIDE 20 MG/2 ML VIAL IV SCH (06:17)
[2020-12-27 06:46] LABS: Basophils # (auto) 0 10 ^3/uL (0-0.2); Basophils % (auto) 0.3 % (0.0-2.0); Eosinophils # (auto) 0.2 10 ^3/uL (0-0.8); Eosinophils % (auto) 2.4 % (0.0-7.0); Hematocrit 43.3 % (36.0-46.0); Hemoglobin 14.8 g/dL (12.2-16.2); Lymphocytes # (auto) 2.8 10 ^3/uL (0.4-5.4); Lymphocytes % (auto) 32.3 % (10.0-50.0); Mean Corpuscular Hemoglobin 33.3 pg (28.0-32.0); Mean Corpuscular Hgb Conc. 34.3 g/dL (32.0-36.0); Mean Corpuscular Volume 97.1 fL (80.0-100.0); Monocytes # (auto) 0.8 10 ^3/uL (0-1.3); Monocytes % (auto) 8.9 % (0.0-12.0); Neutrophils # (auto) 4.9 10 ^3/uL (1.6-8.6); Neutrophils % (auto) 56.1 % (37.0-80.0); Nucleated Red Blood Cells % 0.1 %; Red Blood Cells 4.46 10^6/uL (4.0-5.20); Red Cell Distribution Width 12.5 % (11.8-14.3); White Blood Cell 8.7 10^3/uL (4.4-10.8)
[2020-12-27] MEDS: InsuLIN REG 1unit/0.01ml Soln (100units/ml) SC SCH ×2 (06:59→11:30)
[2020-12-27] MEDS: ACCU-CHEK COMFORT CURVE STRIP VI SCH ×2 (06:59→11:30)
[2020-12-27 07:06] LABS: BUN/Creatinine Ratio 21.4; Calcium 8.7 mg/dL (8.5-10.1); Potassium 4.9 mmol/L (3.5-5.1)
[2020-12-27 08:56] VITALS: BP 124/74
[2020-12-27] MEDS: POTASSIUM EFFERVESENT TAB 25 MEQ PO SCH (09:58)
[2020-12-27] MEDS: CIPROFLOXACIN HCL 500 MG TAB PO SCH (09:58)
[2020-12-27] MEDS ORDERED: FAMOTIDINE 20 MG TAB PO SCH (10:00)
[2020-12-27 13:00] VITALS: BP 124/77
[2020-12-27] MEDS ORDERED: LIDO5DIS21 TOP (13:35)
[2020-12-27 14:39] VITALS: BP 141/84
== END 2020-12-27 16:00 | disposition home or self-care (01) | DRG 465 ==
LOC: ER 09:52 → OVERFLOW 15:36 → WEST WING 18:14
PROVIDERS: ADMIT Hospitalist; ATTEND Hospitalist
DX: N20.0 Calculus of kidney (principal); J44.1 Chronic obstructive pulmonary disease with (acute) exacerbation; K92.2 Gastrointestinal hemorrhage, unspecified; B19.20 Unspecified viral hepatitis C without hepatic coma; E11.9 Type 2 diabetes mellitus without complications; J01.00 Acute maxillary sinusitis, unspecified; E66.9 Obesity, unspecified; I10 Essential (primary) hypertension; G43.909 Migraine, unspecified, not intractable, without status migrainosus; H66.90 Otitis media, unspecified, unspecified ear; Z20.822 Contact with and (suspected) exposure to COVID-19; F17.210 Nicotine dependence, cigarettes, uncomplicated; J20.9 Acute bronchitis, unspecified; R06.03 Acute respiratory distress; F41.9 Anxiety disorder, unspecified; Z68.41 Body mass index [BMI] 40.0-44.9, adult; Z79.82 Long term (current) use of aspirin; Z83.3 Family history of diabetes mellitus; Z82.3 Family history of stroke; Z80.9 Family history of malignant neoplasm, unspecified; Z87.442 Personal history of urinary calculi; Z90.49 Acquired absence of other specified parts of digestive tract; Z79.899 Other long term (current) drug therapy
CPT/HCPCS: 36415; 76775; 80048; 80053; 81001; 82962; 83690; 85025; 85610; 85730; 87426; 96361; 96374; G0378; J1885; J2405

== ENCOUNTER 2021-07-02 20:33 | Emergency (ER) | payer MEDICAID ==
[~2021-07-02] VITALS: Ht 157.5 cm; Wt 96.2 kg
[2021-07-02] MEDS: MAGNESIUM SULFATE 1GM/100ML 100 ML IV SCH (01:20)
[~2021-07-02 20:33] MED LIST changes: -AMOX875T3 PO; +ATOR10TA52 PO; +BACL10TA PO; +BUDE1AER5 IN; -CEPH750C6 PO; +DICL1.3P TOP; +FAMO20TA10 PO; +FLUT0.05 NAS; +GABA-339 PO; +IBUP600T27 PO; -LEVO500T31 PO; +LIDO5DIS21 TOP; +LISI20TA28 PO; +LORA-622 PO; -METF-371 PO; +MONT-8 PO; -NIC21P TD; +SEMA4INJ SC; -SITA100T7 PO
[2021-07-02] MEDS ORDERED: IPRATROPIUM BROM 0.5 MG/2.5ML INH SOL NEB ONE (22:00)
[2021-07-02] MEDS ORDERED: ALBUTEROL SULF 2.5 MG/0.5ML(0.5%) NEB SOLN NEB ONE (22:00)
[2021-07-02] MEDS ORDERED: DexAMETHasone SOD PHOS 10MG/1ML VIAL INJ IV ONE (22:00)
[2021-07-02] MEDS ORDERED: IPRATROPIUM BROM 0.5 MG/2.5ML INH SOL ONE (22:15)
[2021-07-02] MEDS ORDERED: ALBUTEROL SULF 2.5 MG/0.5ML(0.5%) NEB SOLN ONE (22:15)
[2021-07-02 22:43] LABS: Basophils # (auto) 0.1 10 ^3/uL (0-0.2); Basophils % (auto) 0.6 % (0.0-2.0); Eosinophils # (auto) 0.4 10 ^3/uL (0-0.8); Eosinophils % (auto) 3.8 % (0.0-7.0); Hematocrit 44.5 % (36.0-46.0); Hemoglobin 15.5 g/dL (12.2-16.2); Lymphocytes % (auto) 27.8 % (10.0-50.0); Mean Corpuscular Hemoglobin 32.4 pg (28.0-32.0); Mean Corpuscular Hgb Conc. 34.9 g/dL (32.0-36.0); Monocytes % (auto) 9.2 % (0.0-12.0); Neutrophils # (auto) 6.2 10 ^3/uL (1.6-8.6); Neutrophils % (auto) 58.6 % (37.0-80.0); Nucleated Red Blood Cells % 0.1 %; Red Blood Cells 4.79 10^6/uL (4.0-5.20); Red Cell Distribution Width 12.6 % (11.8-14.3); White Blood Cell 10.6 10^3/uL (4.4-10.8)
[2021-07-02 22:56] LABS: Albumin 3.7 g/dL (3.4-5.0); Calcium 9.1 mg/dL (8.5-10.1); Magnesium 2.4 mg/dL (1.6-2.6)
[2021-07-02 22:59] LABS: BUN/Creatinine Ratio 18.9; Bilirubin, Total 0.5 mg/dL (0.2-1.0); Total Protein 7.5 g/dL (6.4-8.2)
[2021-07-03] MEDS: MAGNESIUM SULFATE 1GM/100ML 100 ML IV SCH (01:20)
[2021-07-03 01:22] VITALS: BP 162/89
== END 2021-07-03 01:26 | disposition left against medical advice (07) ==
LOC: ER 20:50
DX: J44.1 Chronic obstructive pulmonary disease with (acute) exacerbation (principal); J96.21 Acute and chronic respiratory failure with hypoxia; E11.9 Type 2 diabetes mellitus without complications; I10 Essential (primary) hypertension; F17.210 Nicotine dependence, cigarettes, uncomplicated; Z90.49 Acquired absence of other specified parts of digestive tract
CPT/HCPCS: 36415; 71046; 80053; 83735; 83880; 84484; 85025; 85379; 93005; 94640; 99285; J7644

== ENCOUNTER 2021-08-27 11:34 | Emergency (ER) | payer MEDICAID ==
[2021-08-27 12:11] VITALS: BP 129/98
== END 2021-08-27 15:20 | disposition home or self-care (01) ==
LOC: ER 11:34
DX: S92.534A Nondisplaced fracture of distal phalanx of right lesser toe(s), initial encounter for closed fracture (principal); I10 Essential (primary) hypertension; E11.9 Type 2 diabetes mellitus without complications; J44.9 Chronic obstructive pulmonary disease, unspecified; F17.210 Nicotine dependence, cigarettes, uncomplicated; Z90.49 Acquired absence of other specified parts of digestive tract; Z79.1 Long term (current) use of non-steroidal anti-inflammatories (NSAID); Z79.82 Long term (current) use of aspirin; Z79.899 Other long term (current) drug therapy; Z88.8 Allergy status to other drugs, medicaments and biological substances; W22.8XXA Striking against or struck by other objects, initial encounter; Y93.89 Activity, other specified; Y92.89 Other specified places as the place of occurrence of the external cause; Y99.8 Other external cause status
CPT/HCPCS: 73630

== ENCOUNTER 2022-07-07 19:33 | Emergency (ER) | payer MEDICAID ==
[~2022-07-07] VITALS: Ht 157.5 cm; Wt 99.1 kg
[~2022-07-07 19:33] MED LIST changes: +IBUP-1454 PO; -IBUP600T27 PO; -LISI20TA28 PO; +LISI20TA56 PO
[2022-07-07 20:12] LABS: Basophils # (auto) 0 10 ^3/uL (0-0.2); Basophils % (auto) 0.5 % (0.0-2.0); Eosinophils # (auto) 0.2 10 ^3/uL (0-0.8); Eosinophils % (auto) 1.7 % (0.0-7.0); Hematocrit 43.8 % (36.0-46.0); Hemoglobin 15.3 g/dL (12.2-16.2); Lymphocytes # (auto) 3.3 10 ^3/uL (0.4-5.4); Lymphocytes % (auto) 34.4 % (10.0-50.0); Mean Corpuscular Hemoglobin 32.3 pg (28.0-32.0); Mean Corpuscular Volume 92.3 fL (80.0-100.0); Monocytes # (auto) 0.8 10 ^3/uL (0-1.3); Monocytes % (auto) 8.7 % (0.0-12.0); Neutrophils # (auto) 5.2 10 ^3/uL (1.6-8.6); Neutrophils % (auto) 54.7 % (37.0-80.0); Nucleated Red Blood Cells % 0.2 %; Red Blood Cells 4.74 10^6/uL (4.0-5.20); Red Cell Distribution Width 12.4 % (11.8-14.3); White Blood Cell 9.6 10^3/uL (4.4-10.8)
[2022-07-07 20:28] LABS: INR 0.96 (0.9-1.15); Partial Thromboplastin Time 25.6 sec (24.6-33.4)
[2022-07-07 20:32] LABS: Albumin 3.9 g/dL (3.4-5.0); Magnesium 2.3 mg/dL (1.6-2.6); Potassium 4.3 mmol/L (3.5-5.1)
[2022-07-07 20:36] LABS: BUN/Creatinine Ratio 16.9 (10.0-20.0); Bilirubin, Total 1.1 mg/dL (0.2-1.0); Total Protein 7.4 g/dL (6.4-8.2)
[2022-07-08] MEDS ORDERED: ALBU0.084 NEB (01:02)
[2022-07-08] MEDS ORDERED: ALBU108A5 IN (01:02)
[2022-07-08] MEDS ORDERED: PRED20TA2 PO (01:02)
[2022-07-08 01:20] VITALS: BP 147/84
== END 2022-07-08 01:25 | disposition home or self-care (01) ==
LOC: ER 19:35
DX: R07.89 Other chest pain (principal); R05.9 Cough, unspecified; J44.9 Chronic obstructive pulmonary disease, unspecified; I10 Essential (primary) hypertension; E11.9 Type 2 diabetes mellitus without complications; Z90.49 Acquired absence of other specified parts of digestive tract; Z87.891 Personal history of nicotine dependence
CPT/HCPCS: 36415; 71045; 80053; 83735; 83880; 84484; 85025; 85610; 85730; 93005

== ENCOUNTER 2022-08-23 09:33 | Emergency (ER) | payer MEDICAID ==
[~2022-08-23] VITALS: Ht 157.5 cm; Wt 105.8 kg
[~2022-08-23 09:33] MED LIST changes: +ALBU0.084 NEB; +ALBU108A5 IN; +PRED20TA2 PO
[2022-08-23 10:04] LABS: Basophils # (auto) 0 10 ^3/uL (0-0.2); Basophils % (auto) 0.4 % (0.0-2.0); Eosinophils # (auto) 0.1 10 ^3/uL (0-0.8); Eosinophils % (auto) 1.5 % (0.0-7.0); Hematocrit 42.1 % (36.0-46.0); Hemoglobin 14.5 g/dL (12.2-16.2); Mean Corpuscular Hemoglobin 32.1 pg (28.0-32.0); Mean Corpuscular Hgb Conc. 34.5 g/dL (32.0-36.0); Mean Corpuscular Volume 93.1 fL (80.0-100.0); Monocytes # (auto) 0.7 10 ^3/uL (0-1.3); Monocytes % (auto) 8.4 % (0.0-12.0); Neutrophils # (auto) 5.2 10 ^3/uL (1.6-8.6); Neutrophils % (auto) 64.7 % (37.0-80.0); Nucleated Red Blood Cells % 0.1 %; Red Blood Cells 4.52 10^6/uL (4.0-5.20); Red Cell Distribution Width 12.8 % (11.8-14.3); White Blood Cell 8.1 10^3/uL (4.4-10.8)
[2022-08-23 10:23] LABS: Albumin 3.4 g/dL (3.4-5.0); Calcium 8.9 mg/dL (8.5-10.1); Magnesium 2.1 mg/dL (1.6-2.6)
[2022-08-23 10:27] LABS: Bilirubin, Total 1.2 mg/dL (0.2-1.0); Total Protein 6.6 g/dL (6.4-8.2)
[2022-08-23 10:37] VITALS: BP 144/95
[2022-08-23] MEDS ORDERED: KETOROLAC TROMETH 60MG/2ML VIAL IM ONE (11:45)
[2022-08-23 11:46] LABS: Urine Bacteria NONE SEEN /hpf (None Seen); Urine Blood Negative /uL (Negative); Urine Specific Gravity 1.026 (1.001-1.035); Urine WBC 1 /hpf (0 - 5)
[2022-08-23] MEDS ORDERED: IBUP-1456 PO (12:02)
[2022-08-23] MEDS ORDERED: METH-1182 PO (12:02)
== END 2022-08-23 12:22 | disposition home or self-care (01) ==
LOC: ER 09:33
DX: K43.9 Ventral hernia without obstruction or gangrene (principal); R10.9 Unspecified abdominal pain; R74.8 Abnormal levels of other serum enzymes; F41.9 Anxiety disorder, unspecified; J44.9 Chronic obstructive pulmonary disease, unspecified; I10 Essential (primary) hypertension; E11.9 Type 2 diabetes mellitus without complications; F17.210 Nicotine dependence, cigarettes, uncomplicated; Z90.49 Acquired absence of other specified parts of digestive tract; Z98.890 Other specified postprocedural states; Z88.8 Allergy status to other drugs, medicaments and biological substances; Z79.1 Long term (current) use of non-steroidal anti-inflammatories (NSAID); Z79.82 Long term (current) use of aspirin; Z79.899 Other long term (current) drug therapy
CPT/HCPCS: 36415; 74176; 80053; 81001; 83690; 83735; 84484; 85025; 93005; 96372; 99285; J1885

== ENCOUNTER 2022-08-24 10:37 | Inpatient (IN) | payer MEDICAID ==
[~2022-08-24] VITALS: Ht 157.5 cm; Wt 106.5 kg
[~2022-08-24 10:37] MED LIST changes: +IBUP-1456 PO; +METH-1182 PO
[2022-08-24 11:22] LABS: Basophils # (auto) 0.1 10 ^3/uL (0-0.2); Eosinophils # (auto) 0.1 10 ^3/uL (0-0.8); Hematocrit 43.4 % (36.0-46.0); Lymphocytes # (auto) 1.8 10 ^3/uL (0.4-5.4); Lymphocytes % (auto) 24.9 % (10.0-50.0); Mean Corpuscular Hemoglobin 32.1 pg (28.0-32.0); Mean Corpuscular Hgb Conc. 34.5 g/dL (32.0-36.0); Mean Corpuscular Volume 92.9 fL (80.0-100.0); Monocytes # (auto) 0.5 10 ^3/uL (0-1.3); Monocytes % (auto) 6.5 % (0.0-12.0); Neutrophils # (auto) 4.8 10 ^3/uL (1.6-8.6); Neutrophils % (auto) 65.6 % (37.0-80.0); Red Blood Cells 4.67 10^6/uL (4.0-5.20); Red Cell Distribution Width 12.8 % (11.8-14.3); White Blood Cell 7.3 10^3/uL (4.4-10.8)
[2022-08-24 11:37] LABS: Albumin 3.5 g/dL (3.4-5.0); Potassium 4.1 mmol/L (3.5-5.1)
[2022-08-24 11:41] LABS: BUN/Creatinine Ratio 12.9 (10.0-20.0); Bilirubin, Total 1.1 mg/dL (0.2-1.0); Total Protein 7.2 g/dL (6.4-8.2)
[2022-08-24] MEDS ORDERED: SODIUM CHLORIDE 0.9% 1,000 ML IV ONE ×2 (12:00→14:30)
[2022-08-24] MEDS ORDERED: ONDANSETRON HCL 4 MG/2 ML VIAL IV ONE (12:00)
[2022-08-24] MEDS ORDERED: MORPHINE SULFATE 4 MG/ML SYR/VIAL IV ONE (12:00)
[2022-08-24 14:39] LABS: Cholesterol 124 mg/dL (< 200)
[2022-08-24 14:43] LABS: HDL Cholesterol 39 mg/dL (40-59); LDL Cholesterol 72 mg/dL (< 100); Triglycerides 144 mg/dL (< 150)
[2022-08-24 14:45] VITALS: PULSE 77; RESP 16; O2SAT 100
[2022-08-24] MEDS ORDERED: DEXTROSE (50%) 50ML SYRG IV PRN (16:45)
[2022-08-24] MEDS: SODIUM CHLORIDE 0.9% 1,000 ML IV SCH (16:45)
[2022-08-24] MEDS: InsuLIN REG 1unit/0.01ml Soln (100units/ml) SC SCH ×2 (17:00→22:31)
[2022-08-24] MEDS: ACCU-CHEK COMFORT CURVE STRIP VI SCH ×2 (17:21→22:30)
[2022-08-24 20:10] VITALS: PULSE 88; RESP 12; O2SAT 96
[2022-08-24] MEDS: ONDANSETRON HCL 4 MG/2 ML VIAL IV PRN (20:13)
[2022-08-24] MEDS: MORPHINE SULFATE INJ 2 MG/ml SYRG IV PRN (20:13)
[2022-08-24 23:20] VITALS: BP 140/82; PULSE 70; RESP 16; TEMP 98.1; O2SAT 94
[2022-08-25] VITALS (8 sets, daily range): BP systolic 127–162; BP diastolic 72–99; PULSE 74–92; RESP 16–22; TEMP 97.5–98.7; O2SAT 86–98
[2022-08-25] MEDS: SODIUM CHLORIDE 0.9% 1,000 ML IV SCH ×3 (00:15→15:59)
[2022-08-25] MEDS: ACETAMINOPHEN 325 MG TAB PO PRN ×2 (01:12→18:45)
[2022-08-25] MEDS: MORPHINE SULFATE INJ 2 MG/ml SYRG IV PRN ×3 (03:01→22:08)
[2022-08-25] MEDS: ACCU-CHEK COMFORT CURVE STRIP VI SCH ×4 (06:30→22:03)
[2022-08-25] MEDS: InsuLIN REG 1unit/0.01ml Soln (100units/ml) SC SCH ×4 (06:30→22:16)
[2022-08-25 06:47] LABS: Albumin 2.9 g/dL (3.4-5.0); BUN/Creatinine Ratio 14.3 (10.0-20.0); Bilirubin, Total 1.6 mg/dL (0.2-1.0); Potassium 3.8 mmol/L (3.5-5.1); Total Protein 5.9 g/dL (6.4-8.2)
[2022-08-25] MEDS ORDERED: HYDROmorphone HCL 2 MG/ML VL/or syr IV ONE (13:00)
[2022-08-25] MEDS: ONDANSETRON HCL 4 MG/2 ML VIAL IV PRN ×2 (15:10→23:33)
[2022-08-26] VITALS (7 sets, daily range): BP systolic 107–154; BP diastolic 59–95; PULSE 65–94; RESP 16–19; TEMP 98–98.5; O2SAT 90–96
[2022-08-26] MEDS: SODIUM CHLORIDE 0.9% 1,000 ML IV SCH ×4 (00:45→23:46)
[2022-08-26] MEDS: ACETAMINOPHEN 325 MG TAB PO PRN ×3 (01:45→17:02)
[2022-08-26] MEDS: MORPHINE SULFATE INJ 2 MG/ml SYRG IV PRN ×5 (02:37→23:46)
[2022-08-26 06:28] LABS: Potassium 3.6 mmol/L (3.5-5.1)
[2022-08-26 06:37] LABS: Albumin 3.1 g/dL (3.4-5.0); BUN/Creatinine Ratio 11.5 (10.0-20.0); Bilirubin, Total 1.5 mg/dL (0.2-1.0); Calcium 8.8 mg/dL (8.5-10.1); Total Protein 6.4 g/dL (6.4-8.2)
[2022-08-26] MEDS: ACCU-CHEK COMFORT CURVE STRIP VI SCH ×4 (06:39→22:59)
[2022-08-26] MEDS: InsuLIN REG 1unit/0.01ml Soln (100units/ml) SC SCH ×4 (06:40→22:59)
[2022-08-26 08:40] LABS: Hepatitis B Surface Antibody Negative (Negative)
[2022-08-26 09:09] LABS: Hepatitis A Total Antibody Negative (Negative)
[2022-08-26 09:44] LABS: Hepatitis C Antibody Reactive (Negative)
[2022-08-26 10:05] LABS: Hepatitis A Ab IgM Negative
[2022-08-26 10:07] LABS: Hepatitis B Core IgM Negative
[2022-08-26 10:08] LABS: Hepatitis C Antibody Reactive (Negative)
[2022-08-26] MEDS: SUCRALFATE 1 GM/10 ML ORAL SUSP PO SCH (17:01)
[2022-08-26] MEDS: PANCREATIC ENZYMES 4200 UNIT CAP PO SCH (18:55)
[2022-08-26] MEDS: PANTOPRAZOLE 40 MG TAB PO SCH (22:59)
[2022-08-27] MEDS: MORPHINE SULFATE INJ 2 MG/ml SYRG IV PRN ×3 (04:52→14:58)
[2022-08-27 05:00] VITALS: BP 171/81; PULSE 91; RESP 19; TEMP 98.6; O2SAT 94
[2022-08-27] MEDS: ACCU-CHEK COMFORT CURVE STRIP VI SCH ×3 (06:05→16:47)
[2022-08-27] MEDS: InsuLIN REG 1unit/0.01ml Soln (100units/ml) SC SCH ×3 (06:10→16:48)
[2022-08-27] MEDS: SUCRALFATE 1 GM/10 ML ORAL SUSP PO SCH ×2 (06:10→10:19)
[2022-08-27 07:47] VITALS: O2SAT 94
[2022-08-27 08:39] VITALS: BP 125/79; PULSE 83; RESP 19; TEMP 98; O2SAT 91
[2022-08-27] MEDS: PANCREATIC ENZYMES 4200 UNIT CAP PO SCH ×2 (10:19→14:57)
[2022-08-27] MEDS: PANTOPRAZOLE 40 MG TAB PO SCH (10:19)
[2022-08-27] MEDS: SODIUM CHLORIDE 0.9% 1,000 ML IV SCH (10:20)
[2022-08-27] MEDS ORDERED: PANT40T PO (11:49)
[2022-08-27] MEDS ORDERED: SUCR1TAB PO (11:49)
[2022-08-27 12:45] VITALS: BP 136/64; PULSE 85; RESP 18; TEMP 98.1; O2SAT 99
[2022-08-27] MEDS ORDERED: IOHEXOL 300 MG/ML 100ML BOTTLE IJ ONE (14:12)
[2022-08-27 14:58] VITALS: BP 132/69; PULSE 87; RESP 18
== END 2022-08-27 16:50 | disposition home or self-care (01) | DRG 282 ==
LOC: ER 10:37 → OVERFLOW 14:19 → EAST 22:35
PROVIDERS: ADMIT Hospitalist; ATTEND Hospitalist
DX: K85.90 Acute pancreatitis without necrosis or infection, unspecified (principal); E11.65 Type 2 diabetes mellitus with hyperglycemia; I10 Essential (primary) hypertension; J44.9 Chronic obstructive pulmonary disease, unspecified; E78.00 Pure hypercholesterolemia, unspecified; R79.89 Other specified abnormal findings of blood chemistry; G89.29 Other chronic pain; F41.9 Anxiety disorder, unspecified; T14.8XXA Other injury of unspecified body region, initial encounter; X58.XXXA Exposure to other specified factors, initial encounter; E66.9 Obesity, unspecified; Z82.3 Family history of stroke; Z83.3 Family history of diabetes mellitus; Z87.891 Personal history of nicotine dependence; Z90.49 Acquired absence of other specified parts of digestive tract; Z68.35 Body mass index [BMI] 35.0-35.9, adult; Y93.89 Activity, other specified; Y92.89 Other specified places as the place of occurrence of the external cause; Y99.8 Other external cause status
CPT/HCPCS: 36415; 71260; 74176; 74177; 76705; 80053; 80061; 80074; 80320; 82962; 83690; 85025; 86704; 86706; 86708; 86803; 87340; 96361; 96374; 96375; G0378; J1815; J2405

== ENCOUNTER 2023-11-29 07:09 | Emergency (ER) | payer MEDICAID ==
[~2023-11-29] VITALS: Ht 157.5 cm; Wt 121.8 kg
[~2023-11-29 07:09] MED LIST changes: -FAMO20TA10 PO; -IBUP-1454 PO; +PANT40T PO; -PRED20TA2 PO; +SUCR1TAB PO
[2023-11-29 07:53] VITALS: BP 148/90; PULSE 100; RESP 18; TEMP 97.3; O2SAT 94
[2023-11-29] MEDS: KETOROLAC TROMETH 60MG/2ML VIAL IM ONE (08:12)
[2023-11-29] MEDS: KETOROLAC TROMETH 60MG/2ML VIAL ONE (08:25)
[2023-11-29] MEDS ORDERED: PRED20TA2 PO (08:40)
== END 2023-11-29 08:33 | disposition home or self-care (01) ==
LOC: ER 07:09
DX: M23.92 Unspecified internal derangement of left knee (principal); J45.909 Unspecified asthma, uncomplicated; E11.9 Type 2 diabetes mellitus without complications; I10 Essential (primary) hypertension; Z88.8 Allergy status to other drugs, medicaments and biological substances; Z79.899 Other long term (current) drug therapy; Z90.49 Acquired absence of other specified parts of digestive tract; Z98.890 Other specified postprocedural states; Z87.891 Personal history of nicotine dependence
CPT/HCPCS: 96372; 99283; J1885

== ENCOUNTER 2023-12-02 16:37 | Emergency (ER) | payer MEDICAID ==
[~2023-12-02] VITALS: Ht 157.5 cm; Wt 122.7 kg
[~2023-12-02 16:37] MED LIST changes: +PRED20TA2 PO
[2023-12-02 16:40] VITALS: BP 138/90; PULSE 105; RESP 20; O2SAT 96
[2023-12-02] MEDS ORDERED: ACET1CAP14 PO (17:16)
[2023-12-02] MEDS ORDERED: IBUP-1453 PO (17:16)
[2023-12-02] MEDS: KETOROLAC TROMETH 60MG/2ML VIAL IM ONE (19:00)
[2023-12-02] MEDS ORDERED: TRAM50TA2 PO (19:15)
== END 2023-12-02 17:17 | disposition home or self-care (01) ==
LOC: ER 16:37
DX: S83.8X2A Sprain of other specified parts of left knee, initial encounter (principal); I10 Essential (primary) hypertension; E11.9 Type 2 diabetes mellitus without complications; J44.89 Other specified chronic obstructive pulmonary disease; Z79.82 Long term (current) use of aspirin; Z79.899 Other long term (current) drug therapy; Z90.49 Acquired absence of other specified parts of digestive tract; Z98.890 Other specified postprocedural states; X50.1XXA Overexertion from prolonged static or awkward postures, initial encounter; Y93.01 Activity, walking, marching and hiking; Y92.89 Other specified places as the place of occurrence of the external cause; Y99.8 Other external cause status
CPT/HCPCS: 96372; 99283; J1885

== ENCOUNTER 2023-12-28 12:22 | Inpatient (IN) | payer MEDICAID ==
[~2023-12-28] VITALS: Ht 157.5 cm; Wt 106.1 kg
[~2023-12-28 12:22] MED LIST changes: +ACET1CAP14 PO; +IBUP-1453 PO; +TRAM50TA2 PO
[2023-12-28 14:15] VITALS: PULSE 93; RESP 17; O2SAT 97
[2023-12-28] MEDS: ONDANSETRON HCL 4 MG/2 ML VIAL IV ONE (16:20)
[2023-12-28] MEDS: MORPHINE SULFATE 4 MG/ML SYR/VIAL IV ONE (16:22)
[2023-12-28 16:55] LABS: Basophils # (auto) 0.1 10 ^3/uL (0-0.2); Basophils % (auto) 0.7 % (0.0-2.0); Eosinophils # (auto) 0.1 10 ^3/uL (0-0.8); Eosinophils % (auto) 1.7 % (0.0-7.0); Hematocrit 50.8 % (36.0-46.0); Hemoglobin 17.2 g/dL (12.2-16.2); Lymphocytes # (auto) 2.7 10 ^3/uL (0.4-5.4); Lymphocytes % (auto) 33.1 % (10.0-50.0); Mean Corpuscular Hemoglobin 31.9 pg (28.0-32.0); Mean Corpuscular Hgb Conc. 33.9 g/dL (32.0-36.0); Mean Corpuscular Volume 94.2 fL (80.0-100.0); Monocytes # (auto) 0.8 10 ^3/uL (0-1.3); Monocytes % (auto) 9.6 % (0.0-12.0); Neutrophils # (auto) 4.5 10 ^3/uL (1.6-8.6); Neutrophils % (auto) 54.9 % (37.0-80.0); Nucleated Red Blood Cells % 0.2 %; Platelet Count (auto) 248 10^3/uL (140-450); Red Blood Cells 5.39 10^6/uL (4.0-5.20); Red Cell Distribution Width 13.4 % (11.8-14.3); White Blood Cell 8.1 10^3/uL (4.4-10.8)
--- NOTE | 2023-12-28 17:00 | ED.PDOC ---
Musculoskeletal HPI Comments 58Y F with PMHx DM, HTN, COPD, asthma, and anxiety presents to ED for chief complaint left knee pain x3days. Per pt, lt knee pain shoots up and down entire lt leg. Pt denies fever. Pt was being f/u by ortho who told her she had torn ligaments behind the lt knee with fluid and a floating bone. Pt was being given pain medication injections and [place] for the pain. Pt had u/s done on 12/18/2023 to r/o DVT and results were negative per pt. Pt has upcoming appt with sports ortho on 01/07/2024. Pt states she could not wait for upcoming appt due to swelling worsening knee and lower leg and new onset of redness in her lower leg. She denies fever, chest pain, shortness of breath. Chief Complaint: Lower Extremity Time Seen by MD: 16:30 Primary Care Provider: MORIAH العلي Notes: Medications, Allergies Allergies: Coded Allergies: Promethazine (Unverified Allergy, Unknown, 06/03/16) pt reports rash, throat closure Home Meds Active Scripts Tramadol Hcl (Tramadol Hcl) 50 Mg Tab, 50 MG PO QIDPRN, #20 TAB Prov:JESICA ANDUJAR MD 12/02/23 Ibuprofen (Ibuprofen) 400 Mg Tab, 1 TAB PO Q6HPRN PRN, #20 TAB Prov:JENNIFER WEBSTER MD 12/02/23 Acetaminophen (Tylenol) 325 Mg Cap, 325 MG PO BID PRN, #30 CAP Prov:JENNIFER WEBSTER MD 12/02/23 Prednisone (Prednisone) 20 Mg Tab, 60 MG PO DAILY, #21 TAB Prov:STEPHEN OCAMPO 11/29/23 Ibuprofen (Ibuprofen) 800 Mg Tab, 1 TAB PO TID, #30 TAB Prov:STEPHEN OCAMPO 11/29/23 Sucralfate (Sucralfate) 1 Gm Tab, 1 GM PO TIDWM, #90 TAB Prov:KEATON DUKES MD 08/27/22 Pantoprazole Sodium Sesquihydr (Pantoprazole Sodium) 40 Mg Tab, 40 MG PO DAILY, #60 TAB Prov:KEATON DUKES MD 08/27/22 Methocarbamol (Methocarbamol) 750 Mg Tab, 750 MG PO QHSP PRN, #20 TAB Prov:SETPHEN OCAMPO 08/23/22 Ibuprofen (Ibuprofen) 800 Mg Tab, 1 TAB PO TID, #30 TAB Prov:STEPHEN OCAMPO 08/23/22 Albuterol Sulfate (Albuterol Sulfate Hfa) 108 Mcg/Act Aer, 108 MCG IN Q2HP PRN, #1 AER Prov:JUAN M HUFFMAN DO 07/08/22 Albuterol Sulfate (Albuterol Sulfate) 0.083 % Neb, 1 VIAL NEB Q4HPRN, #50 VIAL Prov:JUAN M HUFFMAN DO 07/08/22 Lidocaine (LIDODERM 5% TOPICAL PATCH) 1 Patch Ph, 1 PATCH TOP DAILY, #30 PATCH Prov:KEATON DUKES MD 12/27/20 Albuterol Sulfate (VENTOLIN MDI) 90 Mcg Ih, 90 MCG IN Q6HPRN PRN for 30 Days Prov:LIAM COLMENARES MD 06/05/16 Reported Medications Semaglutide (Ozempic) 4 Mg/3 Ml Inj, 4 MG SC, INJ 12/26/20 Montelukast Sodium (MONTELUKAST SODIUM) 10 Mg Tab, 1 TAB PO DAILY, #30 TAB 5 Refills 12/26/20 Loratadine (Claritin) 10 Mg Tab, 1 TAB PO DAILY, #30 TAB 5 Refills 12/26/20 Budesonide-Formoterol Fumarate (Budesonide/Formoterol Fum 80-4.5 Mcg/Act) 1 Aer Aer, 1 AER IN, AER 12/26/20 Gabapentin (Gabapentin) 600 Mg Tab, 600 MG PO BID for 30 Days, MG 12/26/20 Fluticasone Propionate (Fluticasone Propionate) 0.05 % Cre, 50 MCG JUNA DAILY for 30 Days, MCG 12/26/20 Diclofenac Epolamine (Flector) 1.3 % Dis, TOP BID, DIS 12/26/20 Baclofen (Baclofen) 10 Mg Tab, 10 MG PO Q8HP PRN for FOR MUSCLE SPASM for 30 Days, MG 12/26/20 Lisinopril (Lisinopril) 20 Mg Tab, 20 MG PO DAILY for 30 Days, MG 12/26/20 Atorvastatin Calcium (ATORVASTATIN CALCIUM) 10 Mg Tab, 1 TAB PO DAILY, #30 TAB 5 Refills 12/26/20 Hydrocodone-Acetaminophen ([place] 10-325 mg) 1 Tab Tab, 1 TAB PO PRN, TAB 06/03/16 Aspirin (Aspirin) 81 Mg Tab, 81 MG PO DAILY, TAB 06/03/16 Information Source: Patient Mode of Arrival: Ambulatory Location: Left Extremity Location: Knee Timing: Days Severity: Mild Able to Move Extremity: Yes Bear Weight: Limited Pain: Mild Mechanism: Unknown Circumstances: Unknown Symptoms: Swelling, Pain, Erythema, Warmth DVT Risk Factors: NONE Last Tetanus: UTD Associated signs and symptoms: Knee pain Past Medical History PAST MEDICAL HISTORY: Anxiety, Asthma, COPD, DM, HTN Surgical History: Cholecystectomy, [employer]OD [employer]ER History: No Pertinent WO[employer] M[employer]ER History Family History Family History: Reviewed,noncontributory to illness Social History Smoker: Quit Less Than 1 Year, Cigarettes Alcohol: Denies ETOH Use Drugs: Denies Drug Use Lives In: Home Constitutional: denies: chills, diaphoresis, fatigue, fever, malaise, sweats, weakness, others EENTM: denies: blurred vision, double vision, ear bleeding, ear discharge, ear drainage, ear pain, ear ringing, eye pain, eye redness, hearing loss, mouth pain, mouth swelling, nasal discharge, nose bleeding, nose congestion, nose pain, photophobia, tearing, throat pain, throat swelling, voice changes, others Respiratory: denies: cough, hemoptysis, orthopnea, SOB at rest, shortness of breath, SOB with excertion, stridor, wheezing, others Cardiovascular: denies: chest pain, dizzy spells, diaphoresis, Dyspnea on exertion, edema, irregular heart beat, left arm pain, lightheadedness, palpitations, PND, syncope, others Gastrointestinal: denies: abdomen distended, abdominal pain, blood streaked bowels, constipated, diarrhea, dysphagia, difficulty swallowing, hematemesis, melena, nausea, poor appetite, poor fluid intake, rectal bleeding, rectal pain, vomiting, others Genitourinary: denies: abnormal vagina bleeding, burning, dyspareunia, dysuria, flank pain, frequency, hematuria, incontinence, pain, , vagina discharge, urgency, others Neurological: denies: dizziness, fainting, headache, left sided numbness, left sided weakness, numbness, paresthesia, pre-existing deficit, right sided numbness, right sided weakness, seizure, speech problems, tingling, tremors, weakness, others Musculoskeletal: reports: joint pain; denies: back pain, gout, joint swelling, muscle pain, muscle stiffness, neck pain, others Integumetry: denies: bruises, change in color, change in hair/nails, dryness, laceration, lesions, lumps, rash, wounds, others Allergic/Immunocompromised: denies: Difficulty Healing, Frequent Infections, Hives, Itching, others Hematologic/Lymphatic: denies: anemia, blood clots, easy bleeding, easy bruising, swollen glands, others Endocrine: denies: excessive hunger, excessive sweating, excessive thirst, excessive urination, flushing, intolerance to cold, intolerance to heat, unexplained weight gain, unexplained weight loss, others Psychiatric: denies: anxiety, bipolar disorder, depression, hopeless, panic disorder, schizophrenia, sleepless, suicidal, others All Other Systems: Reviewed and Negative Physical Exam General Appearance: No Apparent Distress, Obese HEENT: Normal ENT Inspection Neck: Full Range of Motion, Normal Inspection Respiratory: Lungs Clear, No Accessory Muscle Use, No Respiratory Distress, Normal Breath Sounds Cardiovascular: No JVD, Regular Rate/Rhythm Breast Exam: Deferred Gastrointestinal: Non Tender, Soft Genitalia: Deferred Pelvic: Deferred Rectal: Deferred Extremities: Leg edema, Normal range of motion, Pedal edema, Swelling, Tender, Other (Left knee and leg diffuse soft tissue tenderness and edema. Left leg mild diffuse erythema.) Neurologic: Alert, No Motor Deficits, Normal Affect, Normal Mood, No Sensory Deficits Cerebellar Function: NOT DONE Reflexes: NOT DONE Skin: Dry, Warm, Other (Mild diffuse erythema left leg) Peripheral Pulses: 1+ dorsalis pedis (R), 1+ dorsalis pedis (L) Lymphatic: NOT DONE Was a procedure done? Was a procedure done?: No Differential Diagnosis EXT Differential Diagnosis: Cellulitis, Deep Vein Thrombosis, Contusion, Strain, Arthritis, Bursitis, Other (Worsening knee effusion, among others) X-Ray, Labs, Meds, VS Vital Signs Date Time Temp Pulse Resp B/P (MAP) Pulse Ox O2 Delivery O2 Flow Rate FiO2 12/28/23 19:20 Room Air* 0 21 12/28/23 18:25 97.5 77 20 101/57 (72) 97 97.5 11/17/24 16:52 80 18 129/72 12/28/23 16:22 80 18 129/72 12/28/23 15:46 89 20 98 Room Air 12/28/23 15:46 97.5 89 20 119/79 (92) 96 97.5 12/28/23 14:15 97.6 93 17 150/74 (99) 97 97.6 12/28/23 14:15 93 17 97 Room Air* 0 21 12/28/23 12:58 97.4 107 20 115/79 (91) 93 Lab Test 12/28/23 16:46 Range/Units White Blood Count 8.1 4.4-10.8 10^3/uL Red Blood Count 5.39 H 4.0-5.20 10^6/uL Hemoglobin 17.2 H 12.2-16.2 g/dL Hematocrit 50.8 H 36.0-46.0 % Mean Corpuscular Volume 94.2 80.0-100.0 fL Mean Corpuscular Hemoglobin 31.9 28.0-32.0 pg Mean Corpuscular Hemoglobin Concent 33.9 32.0-36.0 g/dL Red Cell Distribution Width 13.4 11.8-14.3 % Platelet Count 248 140-450 10^3/uL Mean Platelet Volume 7.6 6.9-10.8 fL Neutrophils (%) (Auto) 54.9 37.0-80.0 % Lymphocytes (%) (Auto) 33.1 10.0-50.0 % Monocytes (%) (Auto) 9.6 0.0-12.0 % Eosinophils (%) (Auto) 1.7 0.0-7.0 % Basophils (%) (Auto) 0.7 0.0-2.0 % Neutrophils # (Auto) 4.5 1.6-8.6 10 ^3/uL Lymphocytes # (Auto) 2.7 0.4-5.4 10 ^3/uL Monocytes # (Auto) 0.8 0-1.3 10 ^3/uL Eosinophils # (Auto) 0.1 0-0.8 10 ^3/uL Basophils # (Auto) 0.1 0-0.2 10 ^3/uL Nucleated Red Blood Cells 0.2 % Sodium Level 140 136-145 mmol/L Potassium Level 4.5 3.5-5.1 mmol/L Chloride Level 105 98-107 mmol/L Carbon Dioxide Level 29 20-31 mmol/L Anion Gap 6 5-15 Blood Urea Nitrogen 13 9-23 mg/dL Creatinine 0.87 0.550-1.02 mg/dL Glomerular Filtration Rate Calc 78 >90 mL/min BUN/Creatinine Ratio 14.9 10.0-20.0 Serum Glucose 144 H 74-106 mg/dL Calcium Level 10.9 H 8.7-10.4 mg/dL B-Type Natriuretic Peptide 30.95 0-100 pg/mL Current Medications Medications (Trade) Dose Ordered Sig/Thor Route Start Time Stop Time Status Last Admin Morphine Sulfate 4 mg ONCE ONCE IV 12/28/23 16:15 12/28/23 16:16 DC 12/28/23 16:22 Ondansetron HCl (Zofran) 4 mg ONCE ONCE IV 12/28/23 16:15 12/28/23 16:16 DC 12/28/23 16:20 Clindamycin Phosphate 50 ml @ 50 mls/hr ONCE ONCE IV 12/28/23 18:45 12/28/23 19:44 DC 12/28/23 19:26 PROCEDURE(s): LKNE3 - L KNEE 3V XRAY REASON: pain, edema ORDER NUMBER(s): [id number], ACCESSION NUMBER(s): [id number] CLINICAL INDICATION: pain, edema TECHNIQUE: 4 radiographic views of the left knee were obtained. Comparison: None FINDINGS/IMPRESSION: There is no evidence of acute fracture or dislocation. Mild narrowing medial compartment left knee The alignment is anatomical. There is no radiopaque foreign body. EDURE(s): LLDVT - LT Lower DVT REASON: pain, edema ORDER NUMBER(s): [id number], ACCESSION NUMBER(s): [id number] Left lower extremity venous duplex Clinical History: pain, edema Comparison: None Technique: Duplex Doppler evaluation of the deep venous system of the left lower extremity from the common femoral vein to the popliteal vein including color Doppler and spectral/pulsed waveform analysis was performed. Findings: The common femoral vein demonstrates appropriate compressibility and waveform variability . There is compressibility/patency of the great saphenous vein at the proximal thigh . The femoral vein demonstrates appropriate compressibility and waveform variability . The deep femoral vein demonstrates appropriate compressibility and waveform variability . The popliteal vein demonstrates appropriate compressibility and waveform variability . There is normal compressibility at the tibioperoneal trunk. Impression: 1. No left femoropopliteal venous thrombosis. X-Ray, Labs, Meds, VS Comment 58Y F with PMHx DM, HTN, COPD, asthma, and anxiety complaining of worsening left knee and leg pain and swelling, associated with left leg redness. Vitals remarkable for temperature 97.4, heart rate 107, oxygen saturation 93% on room air Exam remarkable for left knee and leg diffuse soft tissue swelling, tenderness and left leg mild erythema Left knee x-rays unremarkable Left lower extremity ultrasound negative for DVT CBC, basic metabolic panel and BNP unremarkable for any abnormality of acute significance Patient treated with the following in the ED: Morphine 4 mg IV, Zofran 4 mg IV, clindamycin 900 mg IV Plan is to admit the patient for pain control and IV antibiotics. Discussed with ALEXANDRIA Gillis, who will see the patient. Time of 1ST Reevaluation: 17:00 Reevaluation 1ST: Unchanged Time of 2ND Reevaluation: 18:30 Reevaluation 2ND: Improved Patient Education/Counseling: Diagnosis, Treatment Family Education/Counseling: No Family Present Departure 1 Departure Time of Disposition: 18:30 Impression: Primary Impression: Left leg cellulitis Additional Impression: Intractable pain Disposition: ADMITTED INPATIENT Admit to: Med Surg Condition: Fair Critical Care Note Critical Care Time?: No Stability Stability form required: No Heart Score Heart Score: Heart Score Response (Comments) Value History N/A 0 EKG N/A 0 Age N/A 0 Risk Factors N/A 0 Troponin N/A 0 Total 0 I personally scribed for DOMINGO GUERRA MD ([facility]) on 12/28/23 at 17:00. Electronically submitted by Eliane Bee ([employer]). I personally scribed for DOMNIGO GUERRA MD ([facility]) on 12/28/23 at 19:00. Electronically submitted by Eliane Bee ([employer]). DOMINGO GUERRA MD Dec 28, 2023 17:00
[2023-12-28 17:10] LABS: Anion Gap 6 (5-15); Carbon Dioxide 29 mmol/L (20-31); Chloride 105 mmol/L (98-107); Potassium 4.5 mmol/L (3.5-5.1); Sodium 140 mmol/L (136-145)
[2023-12-28 17:11] LABS: Calcium 10.9 mg/dL (8.7-10.4)
[2023-12-28 17:16] LABS: BUN/Creatinine Ratio 14.9 (10.0-20.0); Blood Urea Nitrogen 13 mg/dL (9-23); Glucose 144 mg/dL (74-106)
--- NOTE | 2023-12-28 17:33 | DVH ---
CLINICAL INDICATION: pain, edema TECHNIQUE: 4 radiographic views of the left knee were obtained. Comparison: None FINDINGS/IMPRESSION: There is no evidence of acute fracture or dislocation. Mild narrowing medial compartment left knee The alignment is anatomical. There is no radiopaque foreign body.
--- NOTE | 2023-12-28 17:34 | DVH ---
Left lower extremity venous duplex Clinical History: pain, edema Comparison: None Technique: Duplex Doppler evaluation of the deep venous system of the left lower extremity from the common femor al vein to the popliteal vein including color Doppler and spectral/pulsed waveform analysis was perfo rmed. Findings: The common femoral vein demonstrates appropriate compressibility and waveform variability . There is compressibility/patency of the great saphenous vein at the proximal thigh . The femoral vein demonstrates appropriate compressibility and waveform variability . The deep femoral vein demonstrates appropriate compressibility and waveform variability . The popliteal vein demonstrates appropriate compressibility and waveform variability . There is normal compressibility at the tibioperoneal trunk. Impression: 1. No left femoropopliteal venous thrombosis.
[2023-12-28] MEDS: CLINDAMYCIN 900MG IV 50 ML IV ONE (19:26)
[2023-12-28] MEDS ORDERED: ONDANSETRON HCL 4 MG/2 ML VIAL IV PRN (20:00)
[2023-12-28] MEDS ORDERED: DEXTROSE (50%) 50ML SYRG IV PRN (20:15)
[2023-12-28 20:19] VITALS: BP 101/57; PULSE 77; RESP 20; TEMP 97.5; O2SAT 97
--- NOTE | 2023-12-28 20:48 | DVH ---
INDICATION: 58 years old, Female; intractable left knee pain. COMPARISON: CT ABD PELVIS WO CONTRAST on DOS: 12/25/20 TECHNIQUE: CT of the left was performed without contrast. Volume transverse images were obtained an d reconstructed in multiple planes using bone and soft tissue algorithms. CONTRAST: None Radiation Dose Information: CT Dose: CTDI volume is 8.57 mGy. Dose-length product is 251.92 mGy*cm FINDINGS: The alignment is normal. Joint effusion is noted. There is no fracture, dislocation, or focal osseous lesions. The soft tissues are normal. IMPRESSION: Joint effusion without visualized fracture recommend MRI for further evaluation.
[2023-12-28] MEDS: ACCU-CHEK COMFORT CURVE STRIP VI SCH (22:38)
[2023-12-28] MEDS: CLINDAMYCIN 600MG IV 50 ML IV SCH (22:39)
[2023-12-28] MEDS: InsuLIN REG 1unit/0.01ml Soln (100units/ml) SC SCH (22:41)
[2023-12-28 22:46] VITALS: BP 143/84; PULSE 77; RESP 18; TEMP 97.8; O2SAT 95
[2023-12-28 22:50] VITALS: BP 143/84; PULSE 77; RESP 18; TEMP 97.8; O2SAT 95
[2023-12-28] MEDS: HYDROcodone-ACET 5/325MG TAB PO PRN (23:07)
[2023-12-29] VITALS (10 sets, daily range): BP systolic 98–132; BP diastolic 49–70; PULSE 84–100; RESP 17–21; TEMP 97.5–98.6; O2SAT 91–100
[2023-12-29] MEDS: IPRATROPIUM BROM 0.5 MG/2.5ML INH SOL NEB SCH
--- NOTE | 2023-12-29 01:02 | DVHHP2 ---
Admitting Diagnosis: cellulitis left lower extremity , intractable left knee pain History of Present Illness History Source: Patient Exam Limitations: No limitations HPI Mr. Maricruz Minor is a 58 yo female with a history of DM, Hypertension, COPD, asthma, and anxiety presents to ED for chief complaint left knee pain x 3 days. Per patient, left knee pain shoots up and down entire left leg. Patient denies fever. Patient was being given pain medication injections and [place] for the pain. Pt had ultrasound done on 12/18/2023 to r/o DVT and results were negative per patient reported. Patient endorses she an has upcoming appointment with sports ortho on 01/07/2024. Patient states she could not wait for upcoming appointment due to swelling worsening to left knee and left lower leg and new onset of redness in her left lower leg. 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 Home Meds Active Scripts Tramadol Hcl (Tramadol Hcl) 50 Mg Tab, 50 MG PO QIDPRN, #20 TAB Prov:JESICA ANDUJAR MD 12/02/23 Prednisone (Prednisone) 20 Mg Tab, 60 MG PO DAILY, #21 TAB Prov:STEPHEN OCAMPO 11/29/23 Sucralfate (Sucralfate) 1 Gm Tab, 1 GM PO TIDWM, #90 TAB Prov:KEATON DUKES MD 08/27/22 Pantoprazole Sodium Sesquihydr (Pantoprazole Sodium) 40 Mg Tab, 40 MG PO DAILY, #60 TAB Prov:KEATON DUKES MD 08/27/22 Albuterol Sulfate (Albuterol Sulfate) 0.083 % Neb, 1 VIAL NEB Q4HPRN, #50 VIAL Prov:JUAN M HUFFMAN DO 07/08/22 Albuterol Sulfate (VENTOLIN MOE) 90 Mcg Ih, 90 MCG IN Q6HPRN PRN for 30 Days Prov:LIAM COLMENARES MD 06/05/16 Reported Medications Montelukast Sodium (MONTELUKAST SODIUM) 10 Mg Tab, 1 TAB PO DAILY, #30 TAB 5 Refills 12/26/20 Loratadine (Claritin) 10 Mg Tab, 1 TAB PO DAILY, #30 TAB 5 Refills 12/26/20 Budesonide-Formoterol Fumarate (Budesonide/Formoterol Fum 80-4.5 Mcg/Act) 1 Aer Aer, 1 AER IN, AER 12/26/20 Gabapentin (Gabapentin) 600 Mg Tab, 600 MG PO BID for 30 Days, MG 12/26/20 Fluticasone Propionate (Fluticasone Propionate) 0.05 % Cre, 50 MCG JUAN DAILY for 30 Days, MCG 12/26/20 Diclofenac Epolamine (Flector) 1.3 % Dis, TOP BID, DIS 12/26/20 Baclofen (Baclofen) 10 Mg Tab, 10 MG PO Q8HP PRN for FOR MUSCLE SPASM for 30 Days, MG 12/26/20 Lisinopril (Lisinopril) 20 Mg Tab, 20 MG PO DAILY for 30 Days, MG 12/26/20 Atorvastatin Calcium (ATORVASTATIN CALCIUM) 10 Mg Tab, 1 TAB PO DAILY, #30 TAB 5 Refills 12/26/20 Hydrocodone-Acetaminophen ([place] 10-325 mg) 1 Tab Tab, 1 TAB PO PRN, TAB 06/03/16 Past Medical History Cardiac: HTN Pulmonary: Asthma, COPD Central Nervous System: No pertinent Hx GI: No pertinent Hx Hemotology/Oncology: No pertinent Hx Hepatobiliary: No pertinent Hx Psychiatric: Anxiety Musculoskeletal: No pertinent Hx Rheumotologic: No pertinent Hx Infectious Disease: No peritnent Hx ENT: No pertinent Hx Renal/: No pertinent Hx Endocrine: No pertinent Hx Dermatology: No pertinent Hx Past Surgical History: Cholecystectomy, Patient Family History: Cerebrovascular accident (CVA) Diabetes mellitus G8 MOTHER FH: cancer Smoker: No Hx (Negative) Alocohol: None Drugs: None Lives with: With family Domestic Violence: Neg Review of Systems Constitutional: No symptom reported Ears, Nose, & Throat: No symptom reported Eyes: No symptom reported Pulmonary/Respiratory: No symptom reported Cardiovascular: No symptom reported Gastrointestinal: No symptom reported Genitourinary: No symptom reported Musculoskeletal: Leg pain (left leg pain with erytehma), Joint pain (left knee) Skin: No symptom reported Psychiatric: No symptom reported Endocrine: No symptom reported Hemotologic/Lymphatic: No symptom reported H&P Exam Vital Signs Vital Signs Date Time Temp Pulse Resp B/P (MAP) Pulse Ox O2 Delivery O2 Flow Rate FiO2 12/29/23 00:03 98 Room Air* 0 21 12/28/23 22:50 97.8 77 18 143/84 (103) 97.8 General Appeara: Well developed, Well nourished, Normal Appearance Head Exam: Normal inspection Neck Exam: Normal inspection, Non-tender, Normal alignment Eye Exam: bilateral eye Normal inspection, bilateral eye PERRL, bilateral eye EOMI Ear Exam: bilateral ear Auricle normal Nasal Exam: Normal inspection Mouth: Normal Inspection Pulmonary/Respiratory: Normal inspection, Normal breath sounds, Chest non- tender, Lungs clear Cardiovascular/Chest: Normal inspection, Regular rate, Normal Rhythm Peripheral Pulses: 2+ dorsalis pedis (R), 2+ dorsalis pedis (L), 2+ Radial (R), 2+ Radial (L) Abdominal Exam: Normal bowel sounds, Soft, No tenderness Legs: left leg pain, left leg soft tissue tenderness, left leg swelling, left leg other (left lower extremity erythema ) Knees: left knee joint effusion, left knee swelling Foot: left foot swelling [employer] Exam: Normal hearing, Normal speech, PERRL Motor/Sensory: Normal sensory function, Normal motor function Neuro/Mental St: Alert, Oriented Appearance: Appropriate appearance, Appropriate insight Eye contact/ Speech: Cooperative, Good eye contact, Normal speech Thoughts/Psych: Normal thought pattern Skin Exam: Normal inspection, Warm/dry, Other (left lower extremity erythema) Labs/Xrays Labs Test 12/28/23 22:11 12/28/23 22:07 12/28/23 20:50 12/28/23 16:46 Range/Units C-Reactive Protein High Sensitivity 0.36 <1.0 mg/dL POC Glucose 162 H 70-106 mg/dl Lactic Acid Level 1.6 0.4-2.0 mmol/L White Blood Count 8.1 4.4-10.8 10^3/uL Red Blood Count 5.39 H 4.0-5.20 10^6/uL Hemoglobin 17.2 H 12.2-16.2 g/dL Hematocrit 50.8 H 36.0-46.0 % Mean Corpuscular Volume 94.2 80.0-100.0 fL Mean Corpuscular Hemoglobin 31.9 28.0-32.0 pg Mean Corpuscular Hemoglobin Concent 33.9 32.0-36.0 g/dL Red Cell Distribution Width 13.4 11.8-14.3 % Platelet Count 248 140-450 10^3/uL Mean Platelet Volume 7.6 6.9-10.8 fL Neutrophils (%) (Auto) 54.9 37.0-80.0 % Lymphocytes (%) (Auto) 33.1 10.0-50.0 % Monocytes (%) (Auto) 9.6 0.0-12.0 % Eosinophils (%) (Auto) 1.7 0.0-7.0 % Basophils (%) (Auto) 0.7 0.0-2.0 % Neutrophils # (Auto) 4.5 1.6-8.6 10 ^3/uL Lymphocytes # (Auto) 2.7 0.4-5.4 10 ^3/uL Monocytes # (Auto) 0.8 0-1.3 10 ^3/uL Eosinophils # (Auto) 0.1 0-0.8 10 ^3/uL Basophils # (Auto) 0.1 0-0.2 10 ^3/uL Nucleated Red Blood Cells 0.2 % Sodium Level 140 136-145 mmol/L Potassium Level 4.5 3.5-5.1 mmol/L Chloride Level 105 98-107 mmol/L Carbon Dioxide Level 29 20-31 mmol/L Anion Gap 6 5-15 Blood Urea Nitrogen 13 9-23 mg/dL Creatinine 0.87 0.550-1.02 mg/dL Glomerular Filtration Rate Calc 78 >90 mL/min BUN/Creatinine Ratio 14.9 10.0-20.0 Serum Glucose 144 H 74-106 mg/dL Calcium Level 10.9 H 8.7-10.4 mg/dL B-Type Natriuretic Peptide 30.95 0-100 pg/mL Assessment/Plan Problem List: (1) Left leg cellulitis (2) Intractable pain (3) Edema of knee (4) Internal derangement of left knee Plan 58 yo female with known history of DM, hypertension, COPD, asthma, anxiety, necrotizing fascitis to left lower extremity, cholecystectomy, c section presents to the hospital with worsening left knee pain and left lower extremity swelling and redness. 1. Left lower extremity cellulitis 2. intractable left knee pain 3. Joint effusion to left knee Admit Med surgical -Orthopedic surgeon consultation -IV antibiotic Clindamycin -Analgesic as needed for pain management Discussed all above with patient who verbalizes agreement and understanding of care plan. All questions were answered. Discussed assessment and care plan with supervising MD. Plan discussed with: Patient, Other Code Visit Code Visit Total Time (mins): 45 Additional Comments Additional Comments Additional Comments Patient seen and evaluated by nurse practitioner earlier morning. Patient's c martin is reviewed. Patient is evaluated by me this afternoon. I agree with the nurse practitioner's evaluation, documentation, assessment and care plan as outlined. NANCY POOLE Dec 29, 2023 01:02 KEATON DUKES MD Dec 29, 2023 18:58
--- NOTE | 2023-12-29 07:57 | DVHINCON2 ---
Date of service: Dec 29, 2023 Reason for Consultation Left lower extremity cellulitis History of Present Illness Mrs. Minor is a 58 year old female who reports having progressively worsening left lower extremity swelling for the last four days that began without any known accident or injury. Patient reports that two months ago she tried getting out of bed and felt a loud pop in her left knee and has been having difficulty moving her knee with excessive physical activity since then but the swelling to her left lower extremity is new. 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 Patient is otherwise feeling well denying any other complaints or concerns during my evaluation. Past Medical History DM, Hypertension, COPD, asthma, and anxiety Past Surgical History Cholecystectomy, Family History: Cerebrovascular accident (CVA) Diabetes mellitus G8 MOTHER FH: cancer Family History Noncontributory Social History Patient denies smoking, EtOH, or illicit substance abuse Allergies: Coded Allergies: Promethazine (Unverified Allergy, Unknown, 06/03/16) pt reports rash, throat closure Home Meds Active Scripts Tramadol Hcl (Tramadol Hcl) 50 Mg Tab, 50 MG PO QIDPRN, #20 TAB Prov:JESICA ANDUJAR MD 12/02/23 Prednisone (Prednisone) 20 Mg Tab, 60 MG PO DAILY, #21 TAB Prov:STEPHEN OCAMPO 11/29/23 Sucralfate (Sucralfate) 1 Gm Tab, 1 GM PO TIDWM, #90 TAB Prov:KEATON DUKES MD 08/27/22 Pantoprazole Sodium Sesquihydr (Pantoprazole Sodium) 40 Mg Tab, 40 MG PO DAILY, #60 TAB Prov:KEATON DUKES MD 08/27/22 Albuterol Sulfate (Albuterol Sulfate) 0.083 % Neb, 1 VIAL NEB Q4HPRN, #50 VIAL Prov:JUAN M HUFFMAN DO 07/08/22 Albuterol Sulfate (VENTOLIN I) 90 Mcg Ih, 90 MCG IN Q6HPRN PRN for 30 Days Prov:LIAM COLMENARES MD 06/05/16 Reported Medications Montelukast Sodium (MONTELUKAST SODIUM) 10 Mg Tab, 1 TAB PO DAILY, #30 TAB 5 Refills 12/26/20 Loratadine (Claritin) 10 Mg Tab, 1 TAB PO DAILY, #30 TAB 5 Refills 12/26/20 Budesonide-Formoterol Fumarate (Budesonide/Formoterol Fum 80-4.5 Mcg/Act) 1 Aer Aer, 1 AER IN, AER 12/26/20 Gabapentin (Gabapentin) 600 Mg Tab, 600 MG PO BID for 30 Days, MG 12/26/20 Fluticasone Propionate (Fluticasone Propionate) 0.05 % Cre, 50 MCG JUAN DAILY for 30 Days, MCG 12/26/20 Diclofenac Epolamine (Flector) 1.3 % Dis, TOP BID, DIS 12/26/20 Baclofen (Baclofen) 10 Mg Tab, 10 MG PO Q8HP PRN for FOR MUSCLE SPASM for 30 Days, MG 12/26/20 Lisinopril (Lisinopril) 20 Mg Tab, 20 MG PO DAILY for 30 Days, MG 12/26/20 Atorvastatin Calcium (ATORVASTATIN CALCIUM) 10 Mg Tab, 1 TAB PO DAILY, #30 TAB 5 Refills 12/26/20 Hydrocodone-Acetaminophen ([place] 10-325 mg) 1 Tab Tab, 1 TAB PO PRN, TAB 06/03/16 Current Medications Current Medications Medications (Trade) Dose Ordered Sig/Thor Route PRN Reason Start Time Stop Time Status Last Admin Clindamycin Phosphate 50 ml @ 50 mls/hr Q8HR IV 12/28/23 22:00 12/29/23 05:21 Ondansetron HCl (Zofran) 4 mg Q6HPRN PRN IV NAUSEA / VOMITING 12/28/23 20:00 Morphine Sulfate 2 mg Q6HPRN PRN IV PAIN SCALE 7 THRU 10 12/28/23 20:00 Diagnostic Test (Pha) (Accu-Chek Comfort Curve T) 1 strip ACHS 12/28/23 22:00 12/29/23 06:12 Insulin Human Regular (InsuLIN R) ACHS SC 12/28/23 22:00 12/29/23 06:10 Dextrose 50 ml UD PRN IV Blood Sugar LESS THAN 60 12/28/23 20:15 Acetaminophen (Tylenol Tablet) 650 mg Q6HPRN PRN PO TEMP GREATER THAN 100.4 12/28/23 20:15 Pantoprazole Sodium (Protonix) 40 mg DAILY IV 12/29/23 10:00 Acetaminophen/ Hydrocodone Bitart ([place] 5/325MG Tab) 1 tab Q6HPRN PRN PO PAIN SCALE 1 THRU 6 12/28/23 20:15 12/29/23 04:33 Enoxaparin Sodium (Lovenox) 40 mg DAILY SC 12/29/23 10:00 Ipratropium [place] (Atrovent Medneb) 0.5 mg Q6HR NEB 12/29/23 00:00 Lisinopril (Zestril Tablet) 20 mg DAILY PO 12/29/23 10:00 Loratadine (Claritin Tablet) 10 mg DAILY PO 12/29/23 10:00 Sucralfate (Carafate Tab) 1 gm TIDWM PO 12/29/23 08:00 Atorvastatin Calcium (Lipitor) 10 mg DAILY PO 12/29/23 10:00 Gabapentin (Neurontin Capsule) 600 mg BID PO 12/29/23 10:00 Review of Systems 10 point review of systems negative except as per HPI Vital Signs Vital Signs Date Time Temp Pulse Resp B/P (MAP) Pulse Ox O2 Delivery O2 Flow Rate FiO2 12/29/23 05:25 98.2 87 18 115/49 (71) 94 98.2 12/29/23 00:03 Room Air* 0 21 Physical Exam General appearance: A&O x4 in no acute distress HEENT: Normal ENT inspection, pharynx normal, TMs normal Neck: Full range of motion, nontender, normal inspection Respiratory: Chest nontender, without accessory muscle use, no respiratory distress Cardiovascular: No edema, no JVD, normal peripheral pulses Gastrointestinal: Soft, nontender, no organomegaly. Musculoskeletal: Left knee range of motion 0-100 with pain on movement, mild edema and no erythema to left footing, moderate edema and erythema noted superior to the left anterior ankle, no calf tenderness, normal capillary refill, no pedal edema, neurovascularly intact. Skin: Dry, normal color, warm Lymphatic: No adenopathy Labs/Diagnostic Data Labs Test 12/28/23 22:11 12/28/23 22:07 12/28/23 20:50 12/28/23 16:46 Range/Units C-Reactive Protein High Sensitivity 0.36 <1.0 mg/dL POC Glucose 162 H 70-106 mg/dl Lactic Acid Level 1.6 0.4-2.0 mmol/L White Blood Count 8.1 4.4-10.8 10^3/uL Red Blood Count 5.39 H 4.0-5.20 10^6/uL Hemoglobin 17.2 H 12.2-16.2 g/dL Hematocrit 50.8 H 36.0-46.0 % Mean Corpuscular Volume 94.2 80.0-100.0 fL Mean Corpuscular Hemoglobin 31.9 28.0-32.0 pg Mean Corpuscular Hemoglobin Concent 33.9 32.0-36.0 g/dL Red Cell Distribution Width 13.4 11.8-14.3 % Platelet Count 248 140-450 10^3/uL Mean Platelet Volume 7.6 6.9-10.8 fL Neutrophils (%) (Auto) 54.9 37.0-80.0 % Lymphocytes (%) (Auto) 33.1 10.0-50.0 % Monocytes (%) (Auto) 9.6 0.0-12.0 % Eosinophils (%) (Auto) 1.7 0.0-7.0 % Basophils (%) (Auto) 0.7 0.0-2.0 % Neutrophils # (Auto) 4.5 1.6-8.6 10 ^3/uL Lymphocytes # (Auto) 2.7 0.4-5.4 10 ^3/uL Monocytes # (Auto) 0.8 0-1.3 10 ^3/uL Eosinophils # (Auto) 0.1 0-0.8 10 ^3/uL Basophils # (Auto) 0.1 0-0.2 10 ^3/uL Nucleated Red Blood Cells 0.2 % Sodium Level 140 136-145 mmol/L Potassium Level 4.5 3.5-5.1 mmol/L Chloride Level 105 98-107 mmol/L Carbon Dioxide Level 29 20-31 mmol/L Anion Gap 6 5-15 Blood Urea Nitrogen 13 9-23 mg/dL Creatinine 0.87 0.550-1.02 mg/dL Glomerular Filtration Rate Calc 78 >90 mL/min BUN/Creatinine Ratio 14.9 10.0-20.0 Serum Glucose 144 H 74-106 mg/dL Calcium Level 10.9 H 8.7-10.4 mg/dL B-Type Natriuretic Peptide 30.95 0-100 pg/mL Left knee x-ray reviewed and demonstrated: There is no evidence of acute fracture or dislocation. Mild narrowing medial compartment left knee The alignment is anatomical. There is no radiopaque foreign body. Left knee CT scan reviewed and demonstrated: Joint effusion without visualized fracture Assessment Left lower extremity cellulitis and left knee pain Plan/Recommendation I had a lengthy discussion with the patient and after discussing her case and reviewing her imaging studies with Dr. Sims we have recommended against any surgical intervention at this time and given her imaging studies did not reveal any evidence of a fracture and her physical exam did not reveal any findings suspicious for a septic joint and pretty good range of motion with the majority of the erythema and edema to a little superior to the anterior left ankle. We have recommended continuing with conservative treatment with antibiotics and continued observation for improvement. If patient is not improving with antibiotics or symptoms continued to progress please contact ortho again for re- evaluation. She understood and agreed. Thank you for allowing us to participate in the care of your patient. Plan discussed with: Patient BARRETT,JENJAMES JACKSON Dec 29, 2023 07:57
[2023-12-29] MEDS: SUCRALFATE 1 GM TAB PO SCH (08:00)
[2023-12-29] MEDS: PANTOPRAZOLE 40 MG/10 ML VIAL INJ IV SCH (10:36)
[2023-12-29] MEDS: ENOXAPARIN SOD 40 MG/0.4 ML SYRINGE SC SCH (10:37)
[2023-12-29] MEDS: GABAPENTIN 300 MG CAP PO SCH (10:37)
[2023-12-29] MEDS: LORATADINE 10 MG TAB PO SCH (10:38)
[2023-12-29] MEDS: ATORVASTATIN 20 MG TAB PO SCH (10:38)
[2023-12-29] MEDS: LISINOPRIL 20 MG TAB PO SCH (10:39)
[2023-12-29] MEDS ORDERED: ALBUTEROL SULF 2.5 MG/0.5ML(0.5%) NEB SOLN NEB PRN (14:15)
[2023-12-29] MEDS: MORPHINE SULFATE INJ 2 MG/ml SYRG IV PRN (14:31)
[2023-12-29] MEDS: PIPERACILLIN-TAZOB 3.375GM 100 ML IV SCH (23:58)
[2023-12-30] VITALS (10 sets, daily range): BP systolic 98–136; BP diastolic 45–80; PULSE 65–101; RESP 16–20; TEMP 97.8–98.7; O2SAT 90–100
[2023-12-30] MEDS: ACETAMINOPHEN 325 MG TAB PO PRN (01:56)
[2023-12-30] MEDS: PANTOPRAZOLE 40 MG TAB PO SCH (05:28)
[2023-12-30] MEDS: POTASSIUM CHLORIDE 8 MEQ TAB PO SCH (05:33)
[2023-12-30] MEDS: FUROSEMIDE 40 MG/4 ML VIAL IV SCH (05:34)
--- NOTE | 2023-12-30 10:59 | DVH ---
CLINICAL INDICATION: 58 years old, Female; LT KNEE PAIN. TECHNIQUE: Multiplanar, multisequence MRI of the left knee was performed without contrast. Contrast: None. COMPARISON: CT CT L KNEE WO CONTRAST on DOS: 12/28/23 FINDINGS: Joint space and synovium: There is moderate knee joint effusion. There is synovitis. There is a 3.3 c m Guzman's cyst. Bones, joints and articular cartilage: There is contour deformity in the central weight-bearing media l femoral condyle with a low signal intensity fracture line in the medial femoral condyle. This is co nsistent with an acute subchondral insufficiency fracture. This is associated with moderate bone mar row edema in the medial femoral condyle. Matched area of bone marrow edema is present in the medial tibial plateau. Medial and lateral femorotibial alignment is preserved, as is patellofemoral alignmen t. There is medial joint space narrowing. Focal full-thickness chondral defect noted in the medial f emoral condyle measuring 8 mm. Mild diffuse chondral thinning of the medial tibial plateau. The artic ular cartilage in the lateral compartment and the patellofemoral compartment is preserved. Menisci: There is a tear of the most posterior root of the medial meniscus with meniscocapsular separ ation and thickened abnormal appearance of the meniscal femoral ligament. The lateral meniscus is i ntact. Tendons and ligaments: The tendons in the posterior knee are intact. The extensor mechanism is inta ct. The anterior cruciate ligament is intact. The posterior cruciate ligament is intact. Media l collateral ligament sprain noted. Lateral collateral ligament stabilizing complexes intact. Ilioti bial band is intact. Muscles: Regional muscles are preserved in bulk and signal characteristics. Other: Prepatellar subcutaneous edema and fluid. IMPRESSION: 1. Acute subchondral insufficiency fracture of the medial femoral condyle with marrow edema. Matched area of bone marrow edema in the medial tibial plateau without associated fracture. 2. Tear of the posterior root of the medial meniscus and meniscocapsular separation. 3. MCL sprain. 4. Nonspecific prepatellar edema and fluid. 5. Joint effusion, synovitis and Guzman's cyst.
--- NOTE | 2023-12-30 11:51 | DVHPN2 ---
Progress Note - Dictate Date Seen: Dec 30, 2023 Medical Necessity Reason Pt with a Central, PICC or Fol: No Subjective Patient was lying comfortably in bed during my evaluation reports continued left lower extremity swelling and pain as well as pain to her left knee. Patient reports that she has not yet gotten up out of bed due to the pain. Patient is otherwise feeling well denying any other complaints or concerns during my evaluation. vital signs Vital Sign Date Time Temp Pulse Resp B/P (MAP) Pulse Ox O2 Delivery O2 Flow Rate FiO2 12/30/23 10:00 101/56 12/30/23 08:55 97.9 94 18 94 97.9 12/30/23 08:00 Room Air* 0 21 Total Intake and Output 12/29/23 12/29/23 12/30/23 15:00 23:00 07:00 Intake Total 2400 ml 600 ml Balance 2400 ml 600 ml medications Current Medications Medications Dose Ordered Sig/Thor Route Start Time Stop Time Status Last Admin Dose Admin Ondansetron HCl 4 mg Q6HPRN PRN IV 12/28/23 20:00 Morphine Sulfate 2 mg Q6HPRN PRN IV 12/28/23 20:00 12/30/23 06:59 2 MG Diagnostic Test (Pha) 1 strip ACHS 12/28/23 22:00 12/30/23 10:45 1 STRIP Insulin Human Regular ACHS SC 12/28/23 22:00 12/30/23 11:41 3 UNITS Dextrose 50 ml UD PRN IV 12/28/23 20:15 Acetaminophen 650 mg Q6HPRN PRN PO 12/28/23 20:15 12/30/23 01:56 650 MG Acetaminophen/ Hydrocodone Bitart 1 tab Q6HPRN PRN PO 12/28/23 20:15 12/30/23 11:29 1 TAB Enoxaparin Sodium 40 mg DAILY SC 12/29/23 10:00 12/30/23 10:44 40 MG Lisinopril 20 mg DAILY PO 12/29/23 10:00 12/29/23 10:39 20 MG Loratadine 10 mg DAILY PO 12/29/23 10:00 12/30/23 10:43 10 MG Sucralfate 1 gm TIDWM PO 12/29/23 08:00 12/30/23 11:27 1 GM Atorvastatin Calcium 10 mg DAILY PO 12/29/23 10:00 12/30/23 10:44 10 MG Gabapentin 600 mg BID PO 12/29/23 10:00 12/30/23 10:43 600 MG Albuterol 2.5 mg Q6HPRN PRN NEB 12/29/23 14:15 Ipratropium [place] 0.5 mg Q6HPRN PRN NEB 12/29/23 14:15 Piperacillin Sod/ Tazobactam Sod 100 ml @ 25 mls/hr Q6HR IV 12/30/23 00:00 12/30/23 11:29 25 MLS/HR Furosemide 40 mg BIDD IV 12/30/23 06:00 12/30/23 05:34 40 MG Potassium Chloride 8 meq BID PO 12/30/23 06:00 12/30/23 10:44 8 MEQ Pantoprazole Sodium 40 mg DAILY@0600 PO 12/30/23 06:00 12/30/23 05:28 40 MG objective General appearance: A&O x4 in no acute distress HEENT: Normal ENT inspection, pharynx normal, TMs normal Neck: Full range of motion, nontender, normal inspection Respiratory: Chest nontender, without accessory muscle use, no respiratory distress Cardiovascular: No edema, no JVD, normal peripheral pulses Gastrointestinal: Soft, nontender, no organomegaly. Musculoskeletal: Left knee range of motion 0-100 with pain on movement, mild edema and no erythema to left footing, moderate edema and erythema noted superior to the left anterior ankle, no calf tenderness, normal capillary refill, no pedal edema, neurovascularly intact. Skin: Dry, normal color, warm Lymphatic: No adenopathy Left knee MRI reviewed and demonstrated: 1. Acute subchondral insufficiency fracture of the medial femoral condyle with marrow edema. Matched area of bone marrow edema in the medial tibial plateau without associated fracture. 2. Tear of the posterior root of the medial meniscus and meniscocapsular separation. 3. MCL sprain. 4. Nonspecific prepatellar edema and fluid. 5. Joint effusion, synovitis and Guzman's cyst. laboratory and microbiology Laboratory Tests 12/28/23 16:46 Test 12/28/23 16:46 Range/Units Serum Glucose 144 H 74-106 mg/dL Assessment/Plan Left lower extremity cellulitis, left knee subchondral insufficiency fracture of the medial femoral condyle, and medial meniscus tear I had a lengthy discussion with the patient and after discussing her case and reviewing her imaging studies with Dr. Sims we have recommended against any surgical intervention at this time and instead advised to continue with conservative treatment with rice and knee immobilizer. Knee immobilizer was placed during my evaluation, patient tolerated well without complications. Advised patient to follow up with our office on an outpatient basis for further evaluation and treatment. She understood and agreed. Thank you for allowing us to participate in the care of your patient. Plan discussed with: Patient OLGA BARRETT Dec 30, 2023 11:51
--- NOTE | 2023-12-30 16:57 | DVHPN2 ---
Progress Note - Dictate Date Seen: Dec 30, 2023 Medical Necessity Reason Pt with a Central, PICC or Fol: No Subjective Patient is clinically stable. MRI of the knee showed a partial meniscal tear and ligamental tear. She was re-evaluated by Orthopedic. Recommended knee brace. Patient counseled regarding weight loss with the diet exercise given her morbid obesity. vital signs Vital Sign Date Time Temp Pulse Resp B/P (MAP) Pulse Ox O2 Delivery O2 Flow Rate FiO2 12/30/23 13:00 98.1 89 16 112/63 (79) 90 98.1 12/30/23 08:00 Room Air* 0 21 Total Intake and Output 12/29/23 12/29/23 12/30/23 15:00 23:00 07:00 Intake Total 2400 ml 600 ml Balance 2400 ml 600 ml medications Current Medications Medications Dose Ordered Sig/Thor Route Start Time Stop Time Status Last Admin Dose Admin Ondansetron HCl 4 mg Q6HPRN PRN IV 12/28/23 20:00 Morphine Sulfate 2 mg Q6HPRN PRN IV 12/28/23 20:00 12/30/23 06:59 2 MG Diagnostic Test (Pha) 1 strip ACHS 12/28/23 22:00 12/30/23 10:45 1 STRIP Insulin Human Regular ACHS SC 12/28/23 22:00 12/30/23 11:41 3 UNITS Dextrose 50 ml UD PRN IV 12/28/23 20:15 Acetaminophen 650 mg Q6HPRN PRN PO 12/28/23 20:15 12/30/23 01:56 650 MG Acetaminophen/ Hydrocodone Bitart 1 tab Q6HPRN PRN PO 12/28/23 20:15 12/30/23 11:29 1 TAB Enoxaparin Sodium 40 mg DAILY SC 12/29/23 10:00 12/30/23 10:44 40 MG Lisinopril 20 mg DAILY PO 12/29/23 10:00 12/29/23 10:39 20 MG Loratadine 10 mg DAILY PO 12/29/23 10:00 12/30/23 10:43 10 MG Sucralfate 1 gm TIDWM PO 12/29/23 08:00 12/30/23 11:27 1 GM Atorvastatin Calcium 10 mg DAILY PO 12/29/23 10:00 12/30/23 10:44 10 MG Gabapentin 600 mg BID PO 12/29/23 10:00 12/30/23 10:43 600 MG Albuterol 2.5 mg Q6HPRN PRN NEB 12/29/23 14:15 Ipratropium [place] 0.5 mg Q6HPRN PRN NEB 12/29/23 14:15 Piperacillin Sod/ Tazobactam Sod 100 ml @ 25 mls/hr Q6HR IV 12/30/23 00:00 12/30/23 11:29 25 MLS/HR Furosemide 40 mg BIDD IV 12/30/23 06:00 12/30/23 05:34 40 MG Potassium Chloride 8 meq BID PO 12/30/23 06:00 12/30/23 10:44 8 MEQ Pantoprazole Sodium 40 mg DAILY@0600 PO 12/30/23 06:00 12/30/23 05:28 40 MG objective Comfortable in bed. Alert awake oriented x3. HEENT neck supple no JVD. Heart regular rate and rhythm S1 plus S2. Lungs without rales wheezes. Abdomen soft nontender positive bowel sounds. Extremities no edema. Left knee no palpable effusion. Good range of motion. Complains of pain with the activity. Positive distal pedal pulses. laboratory and microbiology Laboratory Tests 12/28/23 16:46 Test 12/28/23 16:46 Range/Units Serum Glucose 144 H 74-106 mg/dL Assessment/Plan Left knee pain with partial meniscus tear and ligament injury on MRI. Continue knee brace and physical therapy and pain management. Outpatient follow up with orthopedic surgeon. They have evaluated her in the hospital and recommended weight loss prior to considering any surgical interventions. Meantime supportive medical care and treatment. Left lower extremity cellulitis improved. We will continue IV diuresis to improve edema while in the hospital. If she remains stable consider discharge home in the morning. Discussed with the patient's nurse regarding care plan. Problems(with codes): (1) Internal derangement of left knee (2) Left leg cellulitis (3) Knee pain, acute (4) Knee sprain Plan discussed with: Other KEATON DUKES MD Dec 30, 2023 16:57
[2023-12-30] MEDS: IPRATROPIUM BROM 0.5 MG/2.5ML INH SOL NEB PRN (18:05)
--- NOTE | 2023-12-30 21:49 | DVHINCON2 ---
Date of service: Dec 30, 2023 History of Present Illness Patient is a 58-year-old female presents to the hospital for chief complaint of left knee pain for the past 3 days. Patient reports that left knee pain radiates up and down entire left leg. She denies any fever. She was being given pain medication injections and [place] for the pain. Pt had ultrasound done on 12/18/2023 to r/o DVT and results were negative per patient reported. She has an upcoming appointment with sports ortho on 01/07/2024, but she could not wait for upcoming appointment due to swelling worsening to left knee. Left lower leg has redness. 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 Patient admitted for further evaluation. Past Medical History Patient's past medical history is significant for Diabetes mellitus, Hypertension, COPD, Asthma, and anxiety. Family History: Cerebrovascular accident (CVA) Diabetes mellitus G8 MOTHER FH: cancer Allergies: Coded Allergies: Promethazine (Unverified Allergy, Unknown, 06/03/16) pt reports rash, throat closure Home Meds Active Scripts Tramadol Hcl (Tramadol Hcl) 50 Mg Tab, 50 MG PO QIDPRN, #20 TAB Prov:JESICA ANDUJAR MD 12/02/23 Prednisone (Prednisone) 20 Mg Tab, 60 MG PO DAILY, #21 TAB Prov:STEPHEN OCAMPO 11/29/23 Sucralfate (Sucralfate) 1 Gm Tab, 1 GM PO TIDWM, #90 TAB Prov:KEATON DUKES MD 08/27/22 Pantoprazole Sodium Sesquihydr (Pantoprazole Sodium) 40 Mg Tab, 40 MG PO DAILY, #60 TAB Prov:KEATON DUKES MD 08/27/22 Albuterol Sulfate (Albuterol Sulfate) 0.083 % Neb, 1 VIAL NEB Q4HPRN, #50 VIAL Prov:JUAN M HUFFMAN DO 07/08/22 Albuterol Sulfate (VENTOLIN MDI) 90 Mcg Ih, 90 MCG IN Q6HPRN PRN for 30 Days Prov:LIAM COLMENARES MD 06/05/16 Reported Medications Montelukast Sodium (MONTELUKAST SODIUM) 10 Mg Tab, 1 TAB PO DAILY, #30 TAB 5 Refills 12/26/20 Loratadine (Claritin) 10 Mg Tab, 1 TAB PO DAILY, #30 TAB 5 Refills 12/26/20 Budesonide-Formoterol Fumarate (Budesonide/Formoterol Fum 80-4.5 Mcg/Act) 1 Aer Aer, 1 AER IN, AER 12/26/20 Gabapentin (Gabapentin) 600 Mg Tab, 600 MG PO BID for 30 Days, MG 12/26/20 Fluticasone Propionate (Fluticasone Propionate) 0.05 % Cre, 50 MCG JUAN DAILY for 30 Days, MCG 12/26/20 Diclofenac Epolamine (Flector) 1.3 % Dis, TOP BID, DIS 12/26/20 Baclofen (Baclofen) 10 Mg Tab, 10 MG PO Q8HP PRN for FOR MUSCLE SPASM for 30 Days, MG 12/26/20 Lisinopril (Lisinopril) 20 Mg Tab, 20 MG PO DAILY for 30 Days, MG 12/26/20 Atorvastatin Calcium (ATORVASTATIN CALCIUM) 10 Mg Tab, 1 TAB PO DAILY, #30 TAB 5 Refills 12/26/20 Hydrocodone-Acetaminophen ([place] 10-325 mg) 1 Tab Tab, 1 TAB PO PRN, TAB 06/03/16 Current Medications Current Medications Medications (Trade) Dose Ordered Sig/Thor Route PRN Reason Start Time Stop Time Status Last Admin Piperacillin Sod/ Tazobactam Sod 100 ml @ 25 mls/hr Q6HR IV 12/30/23 00:00 12/30/23 17:25 Furosemide (Lasix Injection) 40 mg BIDD IV 12/30/23 06:00 12/30/23 17:24 Potassium Chloride (Klor-Con Tablet) 8 meq BID PO 12/30/23 06:00 12/30/23 21:02 Pantoprazole Sodium (Protonix Tablet) 40 mg DAILY@0600 PO 12/30/23 06:00 12/30/23 05:28 Review of Systems General: No Fever, chills, night sweats or weight loss HEENT: No Sinus pain, headache, vision changes or sore throat Respiratory: No Cough, dyspnea, sputum production Cardiovascular: No Chest pain, palpitations or leg edema Gastrointestinal: No Nausea, vomiting, diarrhea, abdominal pain Genitourinary: No Dysuria, urinary frequency, hematuria, pelvic pain Skin: No Rashes, ulcers, abscesses, redness or swelling Musculoskeletal: Leg pain (left leg pain with erythema), Joint pain (left knee) Neurologic: No Altered mental status, headaches or focal neurological deficits Psychiatric: No Anxiety, depression or confusion Vital Signs Vital Signs Date Time Temp Pulse Resp B/P (MAP) Pulse Ox O2 Delivery O2 Flow Rate FiO2 12/30/23 21:00 98.0 92 20 114/80 (91) 93 98.0 12/30/23 18:06 Room Air 0.0 12/30/23 18:06 21 Physical Exam General: Patient appears alert, comfortable and well-appearing. HEENT: Normocephalic, atraumatic, Sclera anicteric, conjunctiva clear, No nasal discharge or congestion. Mucous membranes moist, no tonsillar erythema or exudates. Neck: No cervical lymphadenopathy or masses. No neck stiffness. Lungs: Breath sounds clear bilaterally, no wheezes, rales, or rhonchi. No use of accessory muscles or respiratory distress. Cardiovascular: Regular rate and rhythm, no murmurs, rubs, or gallops. Abdomen: Soft, non-tender, non-distended. Bowel sounds present in all quadrants. No hepatosplenomegaly or masses. Skin: No rash, petechiae, or ecchymosis. Other (left lower extremity erythema) Extremities: Left leg soft tissue tenderness, left leg swelling. Neurologic: Patient is alert and oriented to person, place, and time. Cranial nerves II-XII intact. Motor strength 5/5 bilaterally in all extremities. Labs/Diagnostic Data Labs Test 12/30/23 21:04 12/28/23 22:11 12/28/23 20:50 12/28/23 16:46 Range/Units POC Glucose 242 H 70-106 mg/dl C-Reactive Protein High Sensitivity 0.36 <1.0 mg/dL Lactic Acid Level 1.6 0.4-2.0 mmol/L White Blood Count 8.1 4.4-10.8 10^3/uL Red Blood Count 5.39 H 4.0-5.20 10^6/uL Hemoglobin 17.2 H 12.2-16.2 g/dL Hematocrit 50.8 H 36.0-46.0 % Mean Corpuscular Volume 94.2 80.0-100.0 fL Mean Corpuscular Hemoglobin 31.9 28.0-32.0 pg Mean Corpuscular Hemoglobin Concent 33.9 32.0-36.0 g/dL Red Cell Distribution Width 13.4 11.8-14.3 % Platelet Count 248 140-450 10^3/uL Mean Platelet Volume 7.6 6.9-10.8 fL Neutrophils (%) (Auto) 54.9 37.0-80.0 % Lymphocytes (%) (Auto) 33.1 10.0-50.0 % Monocytes (%) (Auto) 9.6 0.0-12.0 % Eosinophils (%) (Auto) 1.7 0.0-7.0 % Basophils (%) (Auto) 0.7 0.0-2.0 % Neutrophils # (Auto) 4.5 1.6-8.6 10 ^3/uL Lymphocytes # (Auto) 2.7 0.4-5.4 10 ^3/uL Monocytes # (Auto) 0.8 0-1.3 10 ^3/uL Eosinophils # (Auto) 0.1 0-0.8 10 ^3/uL Basophils # (Auto) 0.1 0-0.2 10 ^3/uL Nucleated Red Blood Cells 0.2 % Sodium Level 140 136-145 mmol/L Potassium Level 4.5 3.5-5.1 mmol/L Chloride Level 105 98-107 mmol/L Carbon Dioxide Level 29 20-31 mmol/L Anion Gap 6 5-15 Blood Urea Nitrogen 13 9-23 mg/dL Creatinine 0.87 0.550-1.02 mg/dL Glomerular Filtration Rate Calc 78 >90 mL/min BUN/Creatinine Ratio 14.9 10.0-20.0 Serum Glucose 144 H 74-106 mg/dL Calcium Level 10.9 H 8.7-10.4 mg/dL B-Type Natriuretic Peptide 30.95 0-100 pg/mL Assessment Patient is a 58-year-old female presents to the hospital with: Left knee pain Meniscus tear Left leg cellulitis Morbid obesity Recommendations: --MRI knee shows meniscus tear --Ortho seen; plan for knee brace --On Zosyn, discontinue and switch to oral Keflex, minimal or ? cellulitis --Plan for 3 more days of antibiotics Thank you for consult and for giving an opportunity to take care of this patient. AMARILIS WOODARD MD Dec 30, 2023 21:49
[2023-12-31 01:00] VITALS: BP 110/67; PULSE 87; RESP 20; TEMP 98.5; O2SAT 85
[2023-12-31 05:00] VITALS: BP 128/77; PULSE 89; RESP 21; TEMP 98.2; O2SAT 91
[2023-12-31 06:51] VITALS: O2SAT 94
--- NOTE | 2023-12-31 11:09 | DVHPN2 ---
Progress Note - Dictate Date Seen: Dec 31, 2023 Medical Necessity Reason Pt with a Central, PICC or Fol: No Subjective Patient was seen and evaluated at bedside. She is clinically stable. MRI of the knee showed a partial meniscal tear and ligamental tear. She was re- evaluated by Orthopedic. Antibiotic status: Cephalexin 500 mg - [Started 12/30 - Ongoing] Zosyn 100 ml @ 25 mls/hr - [Started 12/29 - Ongoing] vital signs Vital Sign Date Time Temp Pulse Resp B/P (MAP) Pulse Ox O2 Delivery O2 Flow Rate FiO2 12/31/23 07:30 97.3 12/31/23 06:51 94 Room Air 0.0 12/31/23 06:51 21 12/31/23 06:28 123/63 12/31/23 05:48 82 16 Total Intake and Output 12/30/23 12/30/23 12/31/23 15:00 23:00 07:00 Intake Total 100 ml 850 ml 540 ml Balance 100 ml 850 ml 540 ml medications Current Medications Medications Dose Ordered Sig/Thor Route Start Time Stop Time Status Last Admin Dose Admin Ondansetron HCl 4 mg Q6HPRN PRN IV 12/28/23 20:00 Morphine Sulfate 2 mg Q6HPRN PRN IV 12/28/23 20:00 12/31/23 05:18 2 MG Diagnostic Test (Pha) 1 strip ACHS 12/28/23 22:00 12/31/23 06:31 1 STRIP Insulin Human Regular ACHS SC 12/28/23 22:00 12/31/23 06:28 4 UNITS Dextrose 50 ml UD PRN IV 12/28/23 20:15 Acetaminophen 650 mg Q6HPRN PRN PO 12/28/23 20:15 12/31/23 06:30 650 MG Acetaminophen/ Hydrocodone Bitart 1 tab Q6HPRN PRN PO 12/28/23 20:15 12/30/23 11:29 1 TAB Enoxaparin Sodium 40 mg DAILY SC 12/29/23 10:00 12/30/23 10:44 40 MG Lisinopril 20 mg DAILY PO 12/29/23 10:00 12/29/23 10:39 20 MG Loratadine 10 mg DAILY PO 12/29/23 10:00 12/30/23 10:43 10 MG Sucralfate 1 gm TIDWM PO 12/29/23 08:00 12/31/23 08:41 1 GM Atorvastatin Calcium 10 mg DAILY PO 12/29/23 10:00 12/30/23 10:44 10 MG Gabapentin 600 mg BID PO 12/29/23 10:00 12/30/23 21:02 600 MG Albuterol 2.5 mg Q6HPRN PRN NEB 12/29/23 14:15 Ipratropium Danese 0.5 mg Q6HPRN PRN NEB 12/29/23 14:15 12/30/23 18:05 0.5 MG Furosemide 40 mg BIDD IV 12/30/23 06:00 12/31/23 06:28 40 MG Potassium Chloride 8 meq BID PO 12/30/23 06:00 12/30/23 21:02 8 MEQ Pantoprazole Sodium 40 mg DAILY@0600 PO 12/30/23 06:00 12/31/23 06:30 40 MG Cephalexin 500 mg Q6HR PO 12/31/23 12:00 UNV objective General appearance: A&O x4 in no acute distress HEENT: Normal ENT inspection, pharynx normal, TMs normal Neck: Full range of motion, nontender, normal inspection Respiratory: Chest nontender, without accessory muscle use, no respiratory distress Cardiovascular: No edema, no JVD, normal peripheral pulses Gastrointestinal: Soft, nontender, no organomegaly. Musculoskeletal: Left knee range of motion 0-100 with pain on movement, mild edema and no erythema to left footing, moderate edema and erythema noted superior to the left anterior ankle, no calf tenderness, normal capillary refill, no pedal edema, neurovascularly intact. Skin: Dry, normal color, warm Lymphatic: No adenopathy laboratory and microbiology Laboratory Tests 12/28/23 16:46 Test 12/28/23 16:46 Range/Units Serum Glucose 144 H 74-106 mg/dL Assessment/Plan Patient is a 58-year-old female presents to the hospital with: Left knee pain Meniscus tear Left leg cellulitis Morbid obesity Recommendations: --MRI knee shows meniscus tear --Ortho seen; plan for knee brace --On Zosyn, discontinue and switch to oral Keflex, minimal or ? cellulitis --Plan for 3 more days of antibiotics Thank you for consult and for giving an opportunity to take care of this patient. AMARILIS WOODARD MD Dec 31, 2023 11:09
[2023-12-31 12:39] VITALS: BP 101/67; PULSE 91; RESP 14; TEMP 97.8; O2SAT 93
[2023-12-31] MEDS: CEPHALEXIN 250 MG CAP PO SCH (14:50)
[2023-12-31] MEDS ORDERED: CEPH500C PO (16:26)
[2023-12-31] MEDS ORDERED: DICL1.3P TOP (16:26)
[2023-12-31] MEDS ORDERED: BACL10TA PO (16:26)
--- NOTE | 2023-12-31 16:29 | DVHDS2 ---
Discharge Summary Date of Admission Dec 28, 2023 at 19:51 Date of Discharge: Dec 31, 2023 Labs/Diagnostic Data: Laboratory Results Test 12/31/23 15:32 12/28/23 22:11 12/28/23 20:50 12/28/23 16:46 POC Glucose 222 mg/dl (70-106) C-Reactive Protein High Sensitivity 0.36 mg/dL (<1.0) Lactic Acid Level 1.6 mmol/L (0.4-2.0) White Blood Count 8.1 10^3/uL (4.4-10.8) Red Blood Count 5.39 10^6/uL (4.0-5.20) Hemoglobin 17.2 g/dL (12.2-16.2) Hematocrit 50.8 % (36.0-46.0) Mean Corpuscular Volume 94.2 fL (80.0-100.0) Mean Corpuscular Hemoglobin 31.9 pg (28.0-32.0) Mean Corpuscular Hemoglobin Concent 33.9 g/dL (32.0-36.0) Red Cell Distribution Width 13.4 % (11.8-14.3) Platelet Count 248 10^3/uL (140-450) Mean Platelet Volume 7.6 fL (6.9-10.8) Neutrophils (%) (Auto) 54.9 % (37.0-80.0) Lymphocytes (%) (Auto) 33.1 % (10.0-50.0) Monocytes (%) (Auto) 9.6 % (0.0-12.0) Eosinophils (%) (Auto) 1.7 % (0.0-7.0) Basophils (%) (Auto) 0.7 % (0.0-2.0) Neutrophils # (Auto) 4.5 10 ^3/uL (1.6-8.6) Lymphocytes # (Auto) 2.7 10 ^3/uL (0.4-5.4) Monocytes # (Auto) 0.8 10 ^3/uL (0-1.3) Eosinophils # (Auto) 0.1 10 ^3/uL (0-0.8) Basophils # (Auto) 0.1 10 ^3/uL (0-0.2) Nucleated Red Blood Cells 0.2 % Sodium Level 140 mmol/L (136-145) Potassium Level 4.5 mmol/L (3.5-5.1) Chloride Level 105 mmol/L (98-107) Carbon Dioxide Level 29 mmol/L (20-31) Anion Gap 6 (5-15) Blood Urea Nitrogen 13 mg/dL (9-23) Creatinine 0.87 mg/dL (0.550-1.02) Glomerular Filtration Rate Calc 78 mL/min (>90) BUN/Creatinine Ratio 14.9 (10.0-20.0) Serum Glucose 144 mg/dL (74-106) Calcium Level 10.9 mg/dL (8.7-10.4) B-Type Natriuretic Peptide 30.95 pg/mL (0-100) Other Laboratory Tests 12/28/23 16:46 Brief Hx & Hospital Course: Mr. Maricruz Minor is a 58 yo female with a history of DM, Hypertension, COPD, asthma, and anxiety presents to ED for chief complaint left knee pain x 3 days. Per patient, left knee pain shoots up and down entire left leg. Patient denies fever. Patient was being given pain medication injections and Glynn for the pain. Pt had ultrasound done on 12/18/2023 to r/o DVT and results were negative per patient reported. Patient endorses she an has upcoming appointment with sports ortho on 01/07/2024. Patient states she could not wait for upcoming appointment due to swelling worsening to left knee and left lower leg and new onset of redness in her left lower leg. 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 She is admitted and treated for her mild lower extremity cellulitis. Patient has left knee pain complaints nor evaluated by orthopedic surgeon. Patient has a MRI of the knee as well as CT scan showed a knee sprain with a meniscus tear. Orthopedic surgeon recommended conservative medical treatment with pain management and knee brace with physical therapy. These were done while in the hospital and patient is clinically feeling better. Pain is improved. Patient is already goes to pain management Clinic outpatient for her chronic pain and takes Glynn at home. Therefore she is advised to continue these medications. Patient otherwise prescribed antibiotic and muscle relaxant. Given overall patient's clinical symptoms have improved and having had necessary workup and evaluations it is felt she could be safely discharged home with close outpatient follow up with the orthopedic surgeon as mentioned. I have talked with the patient regarding her hospital diagnosis, treatment she received, MRI of the knee findings, discharge medications, discharge instructions and she has verbalized understanding of these and agree with the follow up plan of care. Consults/Reason for consult Assessment/Plan Left lower extremity cellulitis, left knee subchondral insufficiency fracture of the medial femoral condyle, and medial meniscus tear I had a lengthy discussion with the patient and after discussing her case and reviewing her imaging studies with Dr. Sims we have recommended against any surgical intervention at this time and instead advised to continue with conservative treatment with rice and knee immobilizer. Knee immobilizer was placed during my evaluation, patient tolerated well without complications. Advised patient to follow up with our office on an outpatient basis for further evaluation and treatment. She understood and agreed. Thank you for allowing us to participate in the care of your patient. Plan discussed with: Patient OLGA BARRETT RENETTA Dec 30, 2023 11:51 Operations or Procedures CLINICAL INDICATION: 58 years old, Female; LT KNEE PAIN. TECHNIQUE: Multiplanar, multisequence MRI of the left knee was performed without contrast. Contrast: None. COMPARISON: CT CT L KNEE WO CONTRAST on DOS: 12/28/23 FINDINGS: Joint space and synovium: There is moderate knee joint effusion. There is synovitis. There is a 3.3 cm Guzman's cyst. Bones, joints and articular cartilage: There is contour deformity in the central weight-bearing medial femoral condyle with a low signal intensity fracture line in the medial femoral condyle. This is consistent with an acute subchondral insufficiency fracture. This is associated with moderate bone marrow edema in the medial femoral condyle. Matched area of bone marrow edema is present in the medial tibial plateau. Medial and lateral femorotibial alignment is preserved, as is patellofemoral alignment. There is medial joint space narrowing. Focal full-thickness chondral defect noted in the medial femoral condyle measuring 8 mm. Mild diffuse chondral thinning of the medial tibial plateau. The articular cartilage in the lateral compartment and the patellofemoral compartment is preserved. Menisci: There is a tear of the most posterior root of the medial meniscus with meniscocapsular separation and thickened abnormal appearance of the meniscal femoral ligament. The lateral meniscus is intact. Tendons and ligaments: The tendons in the posterior knee are intact. The extensor mechanism is intact. The anterior cruciate ligament is intact. The posterior cruciate ligament is intact. Medial collateral ligament sprain noted. Lateral collateral ligament stabilizing complexes intact. Iliotibial band is intact. Muscles: Regional muscles are preserved in bulk and signal characteristics. Other: Prepatellar subcutaneous edema and fluid. IMPRESSION: 1. Acute subchondral insufficiency fracture of the medial femoral condyle with marrow edema. Matched area of bone marrow edema in the medial tibial plateau without associated fracture. 2. Tear of the posterior root of the medial meniscus and meniscocapsular separation. 3. MCL sprain. 4. Nonspecific prepatellar edema and fluid. 5. Joint effusion, synovitis and Guzman's cyst. Condition at Discharge: Stable Final Diagnosis/Problems List Left knee partial meniscus tear/knee sprain, mild left lower extremity cellulitis, morbid obesity Discharge Disposition: Home Discharge Instruct/Medications Diet: Consistent carbohydrate, Cardiac 2g Na,low cholest Activity: No Restrictions, As Tolerated Activity comment: Use walker with ambulation. Weightbearing as tolerated on the left leg. Follow Up/Referral: With orthopedic surgeon Dr. Huynh in two weeks follow up left knee sprain and management Medications: As prescribed and home medication New Medications: Cephalexin Monohydrate (Cephalexin) 500 Mg Cap 1 CAP PO BID, #7 CAP Changed Medications: Diclofenac Epolamine (Flector) 1.3 % Dis 1 CRE TOP BID, #1 BOT (Changed from: Unknown Dose ) Continued Medications: Albuterol Sulfate (Ventolin Mdi) 90 Mcg Ih 90 MCG IN Q6HPRN PRN for 30 Days Albuterol Sulfate (Albuterol Sulfate) 0.083 % Neb 1 VIAL NEB Q4HPRN, #50 VIAL Atorvastatin Calcium (Atorvastatin Calcium) 10 Mg Tab 1 TAB PO DAILY, #30 TAB 5 Refills Baclofen (Baclofen) 10 Mg Tab 10 MG PO Q8HP PRN for FOR MUSCLE SPASM, #14 MG (This prescription has been renewed) Budesonide-Formoterol Fumarate (Budesonide/Formoterol Fum 80-4.5 Mcg/Act) 1 Aer Aer 1 AER IN, AER Fluticasone Propionate (Fluticasone Propionate) 0.05 % Cre 50 MCG JUAN DAILY for 30 Days, MCG Gabapentin (Gabapentin) 600 Mg Tab 600 MG PO BID for 30 Days, MG Hydrocodone-Acetaminophen (Glynn 10-325 mg) 1 Tab Tab 1 TAB PO PRN, TAB Lisinopril (Lisinopril) 20 Mg Tab 20 MG PO DAILY for 30 Days, MG Loratadine (Claritin) 10 Mg Tab 1 TAB PO DAILY, #30 TAB 5 Refills Montelukast Sodium (Montelukast Sodium) 10 Mg Tab 1 TAB PO DAILY, #30 TAB 5 Refills Pantoprazole Sodium Sesquihydr (Pantoprazole Sodium) 40 Mg Tab 40 MG PO DAILY, #60 TAB Prednisone (Prednisone) 20 Mg Tab 60 MG PO DAILY, #21 TAB Sucralfate (Sucralfate) 1 Gm Tab 1 GM PO TIDWM, #90 TAB Tramadol Hcl (Tramadol Hcl) 50 Mg Tab 50 MG PO QIDPRN, #20 TAB Discharge Statement: "Patient was advised to return to the ER or call 911 if any headaches, dizziness, shortness of breath, chest pain, abdominal pain, bleeding, fevers, or worsening of medical condition. Patient was counseled about treatment plan, medications, possible side effects, patientverbalized understanding. All questions were answered to the best of my ability. This discharge took greater then 30 minutes in planning, reviewing documentation, counseling the patient, and discussing with other team members." ASSESSMENT ASSESSMENT Assessment Left knee partial meniscus tear/knee sprain, mild left lower extremity cellulitis, morbid obesity KEATON DUKES MD Dec 31, 2023 16:29
[2023-12-31 17:06] VITALS: BP 98/70; PULSE 95; RESP 14; TEMP 98.2; O2SAT 92
[2023-12-31 17:22] VITALS: BP 116/74; PULSE 90; RESP 18; TEMP 36.8; O2SAT 92
== END 2023-12-31 19:05 | disposition home health service (06) | DRG 342 ==
LOC: ER 12:22 → OVERFLOW 19:51 → WEST WING 20:01
PROVIDERS: ADMIT Nurse Practitioner Family; ATTEND Hospitalist
DX: S83.242A Other tear of medial meniscus, current injury, left knee, initial encounter (principal); S72.432A Displaced fracture of medial condyle of left femur, initial encounter for closed fracture; L03.116 Cellulitis of left lower limb; I10 Essential (primary) hypertension; E11.9 Type 2 diabetes mellitus without complications; M25.462 Effusion, left knee; E66.01 Morbid (severe) obesity due to excess calories; G89.29 Other chronic pain; J44.89 Other specified chronic obstructive pulmonary disease; Z82.3 Family history of stroke; Z83.3 Family history of diabetes mellitus; Z86.73 Personal history of transient ischemic attack (TIA), and cerebral infarction without residual deficits; Z87.891 Personal history of nicotine dependence; Z79.4 Long term (current) use of insulin; Z90.49 Acquired absence of other specified parts of digestive tract; X58.XXXA Exposure to other specified factors, initial encounter; Y93.89 Activity, other specified; Y92.89 Other specified places as the place of occurrence of the external cause; Y99.8 Other external cause status; Z68.42 Body mass index [BMI] 45.0-49.9, adult; Z79.82 Long term (current) use of aspirin; Z79.899 Other long term (current) drug therapy
CPT/HCPCS: 36415; 73562; 73700; 73721; 80048; 82962; 83605; 83880; 85025; 86141; 93971; G0378; J1815; J2405; J2470; J2543; J3490